=== PATIENT | male | born 1960 | race Caucasian/White ===

== ENCOUNTER 2016-11-28 11:08 | Inpatient (IN) | payer BC ==
[~2016-11-28] VITALS: Ht 180.3 cm; Wt 107.5 kg
[2016-11-28] VITALS (9 sets, daily range): BP systolic 162–196; BP diastolic 91–109; PULSE 80–98; RESP 20–22; TEMP 98.5; O2SAT 78–95
[~2016-11-28 11:08] MED LIST: ASPI81TA81
[2016-11-28] MEDS ORDERED: ONDANSETRON HCL 4 MG/2 ML VIAL IVP ONE (11:15)
[2016-11-28] MEDS ORDERED: SODIUM CHLORIDE 0.9% FLUSH 5 ML FLUSH IVF PRN (11:15)
[2016-11-28] MEDS ORDERED: MORPHINE SULFATE 4 MG/ML INJ IV PUSH ONE (11:15)
--- NOTE | 2016-11-28 11:29 | PD ---
HPI Chief Complaint: Fall/Left Knee Pain Time Seen by Provider: 11:19 Travel History International Travel<30 days: No Contact w/Intl Traveler<30days: No Traveled to known affect area: No History of Present Illness HPI 56-year-old male brought in EMS status post fall, with secondary left knee pain. 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 Patient now has pain, and deformity just above the left patella. Patient comes in splinted in on a backboard. Patient denies injury to the upper extremities, neck, or head. He has no thoracic pain or abdominal pain. The right leg is within normal limits. Patient denies left hip pain, and is able to move the left foot and toes without difficulty. He denies numbness or tingling. Patient is unable to extend the left leg at the knee. Patient is in significant pain complaining of 8/10 constant pain. Patient has no other significant medical problems. Patient last ate a yogurt smoothie at approximately 8 AM. Patient has no known drug allergies. 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) Social History Alcohol Use: Yes Tobacco Use: No Substance Use: No Allergies-Medications (Allergen,Severity, Reaction): Coded Allergies: No Known Allergies (Unverified , 11/28/16) Reported Meds & Prescriptions Reported Meds & Active Scripts Active Reported Aspir-81 (Aspirin) 81 Mg Tabdr Review of Systems Except as stated in HPI: all other systems reviewed are Neg General / Constitutional: No: Fever Eyes: No: Visual changes HENT: No: Headaches Cardiovascular: No: Chest Pain or Discomfort Respiratory: No: Shortness of Breath Gastrointestinal: No: Abdominal Pain Genitourinary: No: Dysuria Musculoskeletal: No: Pain Skin: No Rash Neurologic: No: Weakness Psychiatric: No: Depression Endocrine: No: Polydipsia Hematologic/Lymphatic: No: Easy Bruising Physical Exam Narrative GENERAL: Patient appears in moderate distress. SKIN: Warm and dry. Normal color. Normal turgor. HEAD: Atraumatic. Normocephalic. Nontender. EYES: Pupils equal and round. No scleral icterus. No injection or drainage. ENT: No nasal bleeding or discharge. Mucous membranes pink and moist. No dental injury. Pharynx is clear. NECK: Trachea midline. No JVD. No bony tenderness or step-off. Neck is supple without tenderness. CARDIOVASCULAR: Regular rate and rhythm. RESPIRATORY: No accessory muscle use. Clear to auscultation. Breath sounds equal bilaterally. GASTROINTESTINAL: Abdomen soft, non-tender, nondistended. Hepatic and splenic margins not palpable. MUSCULOSKELETAL: Extremities without clubbing, cyanosis, or edema. Patient has normal alignment of the left knee, without shortening. There is a presumed muscular deformity to the proximal patellar tendon. Exam limited secondary to patient's pain. Lower extremity Distal pulses and neurological exam are normal. NEUROLOGICAL: Awake and alert. No obvious cranial nerve deficits. Motor grossly within normal limits. Normal speech. PSYCHIATRIC: Appropriate mood and affect; insight and judgment normal. Data Data Last Documented VS Vital Signs Date Time Temp Pulse Resp B/P Pulse Ox O2 Delivery O2 Flow Rate FiO2 11/28/16 11:19 98.5 83 20 196/109 95 Room Air Orders Electrocardiogram (11/28/16 11:11) Complete Blood Count With Diff (11/28/16 11:11) Comprehensive Metabolic Panel (11/28/16 11:11) Prothrombin Time / Inr (Pt) (11/28/16 11:11) Act Partial Throm Time (Ptt) (11/28/16 11:11) Urinalysis - C+S If Indicated (11/28/16 11:11) Femur (Ap & Lat/2vws) (11/28/16 11:11) Iv Access Insert/Monitor (11/28/16 11:11) Oximetry (11/28/16 11:11) Ice/Cold Pack (11/28/16 11:11) Ecg Monitoring (11/28/16 11:11) Morphine Inj (Morphine Inj) (11/28/16 11:15) Ondansetron Inj (Zofran Inj) (11/28/16 11:15) Sodium Chloride 0.9% Flush (Ns Flush) (11/28/16 11:15) Knee, Ltd (1 Or 2vws) (11/28/16 11:11) Chest, Single Ap (11/28/16 11:11) Hydromorphone Pf Inj (Dilaudid Pf Inj) (11/28/16 12:15) Mri Thigh W/O Contrast (11/28/16 ) Labs Laboratory Tests Test 11/28/16 11/28/16 11:10 13:20 White Blood Count 7.1 TH/MM3 Red Blood Count 5.45 MIL/MM3 Hemoglobin 15.7 GM/DL Hematocrit 46.3 % Mean Corpuscular Volume 85.0 FL Mean Corpuscular Hemoglobin 28.9 PG Mean Corpuscular Hemoglobin 34.0 % Concent Red Cell Distribution Width 13.4 % Platelet Count 209 TH/MM3 Mean Platelet Volume 8.8 FL Neutrophils (%) (Auto) 59.4 % Lymphocytes (%) (Auto) 28.5 % Monocytes (%) (Auto) 8.5 % Eosinophils (%) (Auto) 2.8 % Basophils (%) (Auto) 0.8 % Neutrophils # (Auto) 4.2 TH/MM3 Lymphocytes # (Auto) 2.0 TH/MM3 Monocytes # (Auto) 0.6 TH/MM3 Eosinophils # (Auto) 0.2 TH/MM3 Basophils # (Auto) 0.1 TH/MM3 CBC Comment DIFF FINAL Differential Comment Prothrombin Time 10.3 SEC Prothromb Time International 0.9 RATIO Ratio Activated Partial SEC Thromboplast Time Sodium Level 140 MEQ/L Potassium Level 4.4 MEQ/L Chloride Level 107 MEQ/L Carbon Dioxide Level 28.5 MEQ/L Anion Gap 5 MEQ/L Blood Urea Nitrogen 14 MG/DL Creatinine 0.84 MG/DL Estimat Glomerular Filtration 94 ML/MIN Rate Random Glucose 119 MG/DL Calcium Level 8.6 MG/DL Total Bilirubin 0.6 MG/DL Aspartate Amino Transf 22 U/L (AST/SGOT) Alanine Aminotransferase 50 U/L (ALT/SGPT) Alkaline Phosphatase 56 U/L Total Protein 7.3 GM/DL Albumin 4.0 GM/DL Urine Color YELLOW Urine Turbidity CLEAR Urine pH 5.0 Urine Specific [place] 1.017 Urine Protein NEG mg/dL Urine Glucose (UA) NEG mg/dL Urine Ketones NEG mg/dL Urine Occult Blood NEG Urine Nitrite NEG Urine Bilirubin NEG Urine Urobilinogen LESS THAN 2.0 MG/DL Urine Leukocyte Esterase NEG Urine RBC LESS THAN 1 /hpf Urine WBC LESS THAN 1 /hpf Urine Mucus FEW /lpf Microscopic Urinalysis Comment CATH-CULT NOT IND MDM Medical Decision Making Medical Screen Exam Complete: Yes Emergency Medical Condition: Yes Differential Diagnosis Fall. Left knee contusion. Left knee fracture. Femur fracture. Patella tendon rupture. Narrative Course Patient is medically stable at time of exam. Labs ordered including EKG, chest x-ray, CBC and CMP. IV access is obtained patient is given 4 mg IV Zofran as well as 4 mg IV morphine. X-rays ordered of the left femur and knee. Patient is nothing by mouth. X-ray are read as negative for fracture per radiologist. Call was placed to Dr. Posey, who recommends MRI to evaluate for tendon rupture. MRI is ordered. Patient is given hydromorphone 1 mg IV for pain. MRI shows rupture of the quad patellar tendon. Patient is discussed with Dr. Posey who states he will see the patient in the ED for OR treatment. Diagnosis Primary Impression: Rupture of left patellar tendon Qualified Code: S86.812A - Rupture of left patellar tendon, initial encounter Condition: Stable Yordy Valles Nov 28, 2016 11:29
[2016-11-28 11:47] LABS: AUTOMATED NEUTROPHIL # 4.2 TH/MM3 (1.8-7.7); BASOPHIL # 0.1 TH/MM3 (0-0.2); BASOPHIL % 0.8 % (0.0-2.0); EOSINOPHIL # 0.2 TH/MM3 (0-0.4); EOSINOPHIL % 2.8 % (0.0-4.0); HEMATOCRIT 46.3 % (39.0-51.0); HEMO FLAGS DIFF FINAL; LYMPH % 28.5 % (9.0-44.0); MEAN CORPUSCULAR HEMOGLOBIN 28.9 PG (27.0-34.0); MONO % 8.5 % (0.0-8.0); NEUT % 59.4 % (16.0-70.0); PLATELET COUNT 209 TH/MM3 (150-450); RED BLOOD COUNT 5.45 MIL/MM3 (4.50-5.90); RED CELL DISTRIBUTION WIDTH 13.4 % (11.6-17.2); WHITE BLOOD COUNT 7.1 TH/MM3 (4.0-11.0)
[2016-11-28 11:52] LABS: INTERNATIONAL NORMALIZED RATIO 0.9 RATIO; PROTHROMBIN TIME - PATIENT 10.3 SEC (9.8-11.6)
[2016-11-28 11:56] LABS: ALKALINE PHOSPHATASE 56 U/L (45-117); ALT (GPT) 50 U/L (12-78); ANION GAP 5 MEQ/L (5-15); AST (GOT) 22 U/L (15-37); BICARBONATE 28.5 MEQ/L (21.0-32.0); BLOOD UREA NITROGEN 14 MG/DL (7-18); CHLORIDE 107 MEQ/L (98-107); GLOMERULAR FILTRATION RATE 94 ML/MIN (>89); POTASSIUM 4.4 MEQ/L (3.5-5.1); SODIUM (NA) 140 MEQ/L (136-145); TOTAL BILIRUBIN ADULT 0.6 MG/DL (0.2-1.0)
[2016-11-28] MEDS ORDERED: LACTATED RINGER'S 1000 ML INJ 1,000 ML IV ONE (12:00)
[2016-11-28] MEDS ORDERED: NEOSTIGMINE 3 MG/3 ML SYR IV ONE (12:00)
[2016-11-28] MEDS ORDERED: PHENYLEPH/NS 1000 MCG/10 ML SYR IV ONE (12:00)
[2016-11-28] MEDS ORDERED: ONDANSETRON HCL 4 MG/2 ML VIAL IV PUSH ONE (12:00)
[2016-11-28] MEDS ORDERED: PROPOFOL 200 MG/20 ML AMP IV ONE (12:00)
[2016-11-28] MEDS ORDERED: HYDROmorphone HCL PF 1 MG/ML VIAL IV PUSH ONE (12:15)
--- NOTE | 2016-11-28 12:24 | RADRPT ---
EXAM DATE/TIME: 11/28/2016 12:07 [facility] COMPARISON: No previous studies available for comparison. INDICATIONS : Shortness of breath post fall. MEDICAL HISTORY : None. SURGICAL HISTORY : None. ENCOUNTER: Initial ACUITY: 1 day PAIN SCORE: 0/10 LOCATION: Bilateral chest FINDINGS: A single view of the chest demonstrates the lungs to be symmetrically aerated without evidence of mas s, infiltrate or effusion. The cardiomediastinal contours are unremarkable degenerative ;changes are present about both shoulders. CONCLUSION: No acute disease. Rico Beth MD FACR on November 28, 2016 at 12:17 Board Certified Radiologist. This report was verified electronically.
--- NOTE | 2016-11-28 12:33 | RADRPT ---
EXAM DATE/TIME: 11/28/2016 11:56 [facility] COMPARISON: No previous studies available for comparison. INDICATIONS : Left knee pain, fall. MEDICAL HISTORY : None. SURGICAL HISTORY : None. ENCOUNTER: Initial ACUITY: 1 day PAIN SCORE: 10/10 LOCATION: Left anterior knee FINDINGS: Two view examination of the left knee demonstrates no evidence of fracture or dislocation. Bony mine ralization is normal. The suprapatellar soft tissues have a normal configuration. Small spur forming off the superior patella. CONCLUSION: No acute bony injury. Napoleon Garcia MD on November 28, 2016 at 12:31 Board Certified Radiologist. This report was verified electronically.
--- NOTE | 2016-11-28 12:34 | RADRPT ---
EXAM DATE/TIME: 11/28/2016 12:09 [facility] COMPARISON: No previous studies available for comparison. INDICATIONS : Left leg pain, fall. MEDICAL HISTORY : None. SURGICAL HISTORY : None. ENCOUNTER: Initial ACUITY: 1 day PAIN SCORE: 10/10 LOCATION: Left knee FINDINGS: Two view examination of the left femur demonstrates no evidence of fracture or dislocation. Bony min eralization is normal. The soft tissue structures are intact. CONCLUSION: Unremarkable examination of the left femur. Napoleon Garcia MD on November 28, 2016 at 12:32 Board Certified Radiologist. This report was verified electronically.
[2016-11-28 13:42] LABS: BLOOD, URINE NEG (NEG); GLUCOSE,URINE NEG (NEG); KETONE, URINE NEG (NEG); MUCUS URINE FEW /lpf (OCC); NITRITE,URINE NEG (NEG); URINE COLOR YELLOW (YELLW/STRAW)
[2016-11-28 13:43] LABS: COMMENT (UR) CATH-CULT NOT IND; CULTURE IF INDICATED CATH CULTURE NOT IND
--- NOTE | 2016-11-28 16:31 | RADRPT ---
EXAM DATE/TIME: 11/28/2016 14:33 [facility] COMPARISON: No previous studies available for comparison. INDICATIONS : Tendon rupture. Pt fell now has pain top of left thigh. MEDICAL HISTORY : None. SURGICAL HISTORY : Femur/knee ENCOUNTER: Initial ACUITY: 1 day PAIN SCORE: 6/10 LOCATION: Left thigh TECHNIQUE: Multiplanar multisequence MRI examination of the thigh was performed without contrast. FINDINGS: The study was protocoled as a thigh MRI. The quadriceps tendon is incompletely imaged. BONE/CARTILAGE: Bone marrow signal is homogeneous. Articular cartilage signal is within normal limits. MUSCLES/TENDONS: There is a high grade partial tear of the quadriceps tendon. The rectus femoris tendon is torn and re tracted to at least 2.7 cm above the patella. There is a tear involving the insertion of the vastus l ateralis tendon with a similar fluid-filled defect. The vastus intermedius tendon is still grossly in tact. There is some edema in the vastus lateralis muscle in the vastus intermedius muscle. A knee MRI would be much more sensitive test to give a better definition to the amount of and tendons involve. MISCELLANEOUS: Neurovascular structures are within normal limits. CONCLUSION: There is a high grade partial tear of the quadriceps tendon. The rectus femoris tendon is torn and re tracted to at least 2.7 cm above the patella. There is a tear involving the insertion of the vastus l ateralis tendon with a similar fluid-filled defect. The vastus intermedius tendon is still grossly in tact. There is some edema in the vastus lateralis muscle in the vastus intermedius muscle. A knee MRI would be much more sensitive test to give a better definition to the amount of and tendons involve. Eric Fallon MD on November 28, 2016 at 16:23 Board Certified Radiologist. This report was verified electronically.
[2016-11-28] MEDS ORDERED: ceFAZolin 2 GM PREMIX 50 ML IV SCH (17:45)
[2016-11-28] MEDS ORDERED: ceFAZolin 2 GM PREMIX 50 ML ONE (18:10)
[2016-11-28] MEDS: HYDROmorphone HCL PF 1 MG/ML VIAL IV PUSH PRN ×2 (20:37→21:13)
[2016-11-28] MEDS ORDERED: GENTAMICIN SULFATE 80 MG/2 ML VIAL ONE (22:03)
[2016-11-28] MEDS ORDERED: ACETAMINOPHEN 1000 MG/100 ML VIAL IV ONE (22:58)
[2016-11-28] MEDS: DEXT 5%-NACL 0.45% 1000 ML INJ 1,000 ML IV SCH (23:58)
[2016-11-29] VITALS (7 sets, daily range): BP systolic 125–142; BP diastolic 70–85; PULSE 88–92; RESP 16–18; TEMP 96.7–98.2; O2SAT 93–98
[2016-11-29] MEDS ORDERED: ONDANSETRON HCL 4 MG/2 ML VIAL IVP PRN
[2016-11-29] MEDS ORDERED: MISCELLANEOUS PHARMACY INFORMATION XX ONE
[2016-11-29] MEDS ORDERED: SODIUM CHLORIDE 0.9% FLUSH 5 ML FLUSH IVF PRN
[2016-11-29] MEDS ORDERED: NALOXONE HCL 0.4 MG/ML AMP IV PRN
[2016-11-29] MEDS ORDERED: diphenhydrAMINE HCL 25 MG CAP PO PRN
[2016-11-29] MEDS ORDERED: oxyCODONE/ACETAMINOPHEN 5 MG/325 MG TAB PO PRN
[2016-11-29] MEDS ORDERED: MISCELLANEOUS NURSING INFORMATION XX PRN
[2016-11-29] MEDS ORDERED: MORPHINE SULFATE 30 MG/30 ML PCA IV SCH
[2016-11-29] MEDS ORDERED: Post-op Orders (for Pharmacy) MISC XX ONE
--- NOTE | 2016-11-29 00:07 | PD.OP ---
Operative Report Preoperative Diagnosis: (1) Rupture of left quadriceps tendon Postoperative Diagnosis: (1) Rupture of left quadriceps tendon Procedure: Left Quadriceps Tendon Repair Anesthesia: General Surgeon: Phil Posey MD Plumbing Instructor(s): Jean RAMOS Operation and Findings: see dictation Phil Posey MD Nov 29, 2016 00:07
[2016-11-29] MEDS ORDERED: *MEPERIDINE 25 MG INJ VIAL PERIprocedural Use ONLY ONE (00:16)
[2016-11-29] MEDS ORDERED: *LABETALOL HCL 100 MG/20 ML VIAL PERIprocedural Use ONLY ONE (00:16)
[2016-11-29] MEDS ORDERED: MIDAZOLAM HCL 2 MG/2 ML VIAL ONE (00:18)
[2016-11-29] MEDS ORDERED: fentaNYL CITRATE 250 MCG/5 ML AMP ONE (00:18)
[2016-11-29] MEDS ORDERED: FAMOTIDINE 20 MG/2 ML VIAL ONE (00:19)
[2016-11-29] MEDS ORDERED: *ENALAPRILAT 1.25 MG/ML VIAL PERIprocedural Use ONLY ONE (00:47)
[2016-11-29] MEDS ORDERED: *morphine SULFATE 8 MG/ML PERIprocedure ONLY ONE (00:56)
--- NOTE | 2016-11-29 05:50 | MH ---
cc: PEDRO DUMONT M.D. DATE OF ADMISSION: 11/28/2016 ADMISSION DIAGNOSIS Left knee quadriceps tendon complete rupture. 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 X-rays showed no obvious fracture. He was brought to [facility] where x-rays showed no obvious fracture. He was unable to extend his knee. The physician material assistant telephoned me and recommendation was MRI scan and that was performed which did confirm a complete quadriceps rupture. The patient is now being admitted for this severe problem. His pain is reasonably controlled at this point. He is indicated for surgical intervention for this problem. After surgery, then he will need to be taught how to safely ambulate, either with a walker or crutches and his estimated time of admission is three days. PAST MEDICAL HISTORY Significant for borderline hypertension. PAST SURGICAL HISTORY 1. 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 2. He has a history of left elbow dislocation which required treatment. SOCIAL HISTORY He uses occasional alcohol. Denies tobacco or substance use. MEDICATIONS He is on no regular medication and except for daily aspirin. ALLERGIES No known drug allergies. PHYSICAL EXAMINATION GENERAL: He is alert, oriented, appropriate. HEENT: Head is atraumatic, normocephalic. External muscles intact. Mucous membranes pink and moist. Neck: Supple. No masses. LUNGS: Clear to auscultation bilaterally. HEART: Regular rate and rhythm, without murmur. ABDOMEN: Soft. Non-tender. Positive bowel sounds. EXTREMITY EXAMINATION: Significant for left knee palpable defect above the superior pole of the patella consistent with a complete quadriceps rupture. He is unable to extend his knee. He has tenderness at this location, small effusion. No ligamentous instability. Calves are soft. Distal pulses are 2+. Distal motor and sensory neurologic examination intact. IMAGING STUDIES Images of his femur, his knee and a thigh MRI is reviewed by the undersigned which is all consistent with complete rupture of the quadriceps tendon at the superior pole of the patella attachment site. ASSESSMENT Left knee quadriceps rupture. MEDICAL DECISION MAKING His condition was discussed. The options of treatment were discussed. The recommendation is admission and surgical intervention. If we can proceed with surgery at night, then we would like to do that as he not eaten anything since breakfast. We talked about surgical technique, anterior approach to the knee, trimming away the torn tissue and then taking healthy tissue and repairing it directly to the bone either with suture anchors or drill holes to the length of the patella. The risk of infection, nerve damage, blood vessel damage, anesthetic complications, medical complications and unforeseen possible complications were discussed including discussion for the need for compliance postoperatively and probable small loss of motion of the knee. The risks and benefits were thoroughly discussed and a detailed informed consent was obtained. Additionally, the plan of treatment is to have a nurse practitioner to assist me as the skill set of nurse practitioner who specializes in orthopedic surgeon as needed for the OR and postoperatively he will assist with management and this is discussed with the patient, that his care is medically necessary. All questions answered. MD PAULINA Fernandes/MERARY /5:38 PM /5:37 AM
[2016-11-29] MEDS: PCA - TOTAL MG MORPHINE DELIVERED PER SHIFT SCH ×4 (06:00→19:04)
--- NOTE | 2016-11-29 08:04 | PD.ORT.PN ---
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 Lying in bed. Objective Vitals Vital Signs Date Time Temp Pulse Resp B/P Pulse Ox O2 Delivery O2 Flow Rate FiO2 11/29/16 06:00 18 11/29/16 02:49 14 11/29/16 02:05 98.2 88 17 138/81 96 11/29/16 01:45 97.9 84 18 146/90 94 Nasal Cannula 3 11/29/16 01:30 83 13 144/89 94 Nasal Cannula 3 11/29/16 01:15 80 14 142/87 94 Nasal Cannula 3 11/29/16 01:00 80 14 143/82 95 Nasal Cannula 3 11/29/16 00:45 81 16 170/102 95 Nasal Cannula 3 11/29/16 00:30 76 15 157/96 94 Nasal Cannula 3 11/29/16 00:15 86 20 187/103 97 Nasal Cannula 3 11/29/16 00:10 98.0 91 21 195/104 95 Nasal Cannula 3 11/28/16 21:14 93 20 162/91 95 Nasal Cannula 11/28/16 21:10 16 11/28/16 21:03 93 20 163/93 11/28/16 20:37 98 20 167/94 94 11/28/16 19:55 83 20 183/105 11/28/16 19:45 84 20 194/99 11/28/16 19:12 88 179/96 94 Room Air 11/28/16 17:57 93 20 181/94 95 Room Air 11/28/16 11:19 98.5 83 20 196/109 95 Room Air 11/28/16 11:19 77 20 95 Room Air 11/28/16 11:10 98.5 82 22 196/109 95 I/O 11/28/16 11/28/16 11/28/16 11/29/16 11/29/16 11/29/16 07:00 15:00 23:00 07:00 15:00 23:00 Intake Total 1200 ml Output Total 50 ml Balance 1150 ml Intake IV Total 100 ml Other 1100 ml Output Urine Total 0 ml Estimated Blood Loss 50 ml Other 0 ml # Voids 0 Result Diagram: 11/28/16 1110 11/28/16 1110 Other Results Laboratory Tests Test 11/28/16 11:10 Prothrombin Time 10.3 SEC (9.8-11.6) Prothromb Time International 0.9 RATIO Ratio Imaging Last 24 hours Impressions Knee X-Ray 11/28/16 1111 Signed Impressions: Service Date/Time: Monday, November 28, 2016 11:56 - CONCLUSION: No acute bony injury. Napoleon Garcia MD Femur X-Ray 11/28/16 1111 Signed Impressions: Service Date/Time: Monday, November 28, 2016 12:09 - CONCLUSION: Unremarkable examination of the left femur. Napoleon Garcia MD Chest X-Ray 11/28/16 1111 Signed Impressions: Service Date/Time: Monday, November 28, 2016 12:07 - CONCLUSION: No acute disease. Rico Beth MD FACR Procedures Left Quadriceps Tendon Repair Objective Remarks Left knee beni wrap in place C/D/I knee immobilizer in place ice pack in place +sensation 2+ dorsalis pedis pulses good movement of foot Assessment & Plan Ortho Post Op Day #: 1 Problem List: (1) Rupture of left quadriceps tendon Plan: Pain management - TRUCK DRIVING and Percocet Physical therapy - weight bearing as tolerated, No ROM, wear knee immobilizer at all times Continue standard meds D/C planning - anticipating home Jean Shipley Nov 29, 2016 08:04
[2016-11-29] MEDS: CHLORHEXIDINE GLUCONATE 4% SOLN 120 ML BTL TOPICAL SCH ×2 (08:38→18:58)
[2016-11-29] MEDS: SODIUM CHLORIDE 0.9% FLUSH 5 ML FLUSH IVF SCH ×2 (09:00→21:00)
[2016-11-29] MEDS: MAGNESIUM HYDROXIDE SUSP 30 ML CUP PO PRN (10:14)
[2016-11-29] MEDS: DOCUSATE SODIUM 50 MG/SENNA 8.6 MG TAB PO SCH ×2 (10:15→21:00)
[2016-11-29] MEDS: MULTIVITAMINS/MINERALS THERAPEUTIC TAB PO SCH (10:15)
[2016-11-29] MEDS: ceFAZolin 2 GM PREMIX 50 ML IV SCH ×3 (10:16→16:58)
[2016-11-29] MEDS: DEXT 5%-NACL 0.45% 1000 ML INJ 1,000 ML IV SCH ×2 (10:17→19:58)
--- NOTE | 2016-11-29 13:30 | EKG ---
Date Performed: 11/28/2016 Time Performed: 12:26:55 PTAGE: 56 years EKG: Sinus rhythm NORMAL ECG NO PREVIOUS TRACING DOCTOR: Laury Walker Interpretating Date/Time 11/29/2016 13:29:28
[2016-11-29] MEDS: oxyCODONE/ACETAMINOPHEN 5 MG/325 MG TAB PO PRN ×2 (14:05→21:03)
[2016-11-30 00:33] VITALS: BP 156/78; PULSE 74; RESP 17; TEMP 96.4; O2SAT 96
[2016-11-30 04:15] VITALS: BP 155/98; PULSE 82; RESP 18; TEMP 99.4; O2SAT 96
[2016-11-30] MEDS: oxyCODONE/ACETAMINOPHEN 5 MG/325 MG TAB PO PRN ×3 (05:02→20:32)
[2016-11-30] MEDS: DEXT 5%-NACL 0.45% 1000 ML INJ 1,000 ML IV SCH ×3 (05:03→20:20)
[2016-11-30 08:00] VITALS: BP 146/93; PULSE 81; RESP 18; TEMP 97; O2SAT 96
[2016-11-30] MEDS: MULTIVITAMINS/MINERALS THERAPEUTIC TAB PO SCH (08:15)
[2016-11-30] MEDS: SODIUM CHLORIDE 0.9% FLUSH 5 ML FLUSH IVF SCH ×2 (08:15→20:20)
[2016-11-30] MEDS: MAGNESIUM HYDROXIDE SUSP 30 ML CUP PO PRN (08:15)
[2016-11-30] MEDS: DOCUSATE SODIUM 50 MG/SENNA 8.6 MG TAB PO SCH ×2 (08:15→20:15)
[2016-11-30] MEDS: PCA - TOTAL MG MORPHINE DELIVERED PER SHIFT SCH ×3 (08:16→20:22)
[2016-11-30 12:00] VITALS: BP 153/97; PULSE 99; RESP 18; TEMP 96.6; O2SAT 95
[2016-11-30 16:00] VITALS: BP_SYST 152; BP_DIAS 86; BP_DIAS 96; PULSE 86; RESP 18; TEMP 98.5; O2SAT 98
[2016-11-30 20:00] VITALS: BP 168/97; PULSE 105; RESP 18; TEMP 97.4; O2SAT 93
--- NOTE | 2016-11-30 22:35 | PD.ORT.PN ---
Subjective Subjective Remarks Spoke with RN and states that patient is ambulating around the room with no distress. Objective Vitals Vital Signs Date Time Temp Pulse Resp B/P Pulse Ox O2 Delivery O2 Flow Rate FiO2 11/30/16 21:32 18 11/30/16 20:00 97.4 105 18 168/97 93 11/30/16 16:00 98.5 86 18 152/86 98 11/30/16 12:00 96.6 99 18 153/97 95 11/30/16 08:00 97.0 81 18 146/93 96 11/30/16 04:15 99.4 82 18 155/98 96 11/30/16 00:33 96.4 74 17 156/78 96 I/O 11/29/16 11/29/16 11/29/16 11/30/16 11/30/16 11/30/16 07:00 15:00 23:00 07:00 15:00 23:00 Intake Total 2265 ml 1462 ml 480 ml 480 ml 1260 ml Output Total 850 ml 1500 ml 400 ml 500 ml Balance 1415 ml -38 ml 80 ml -20 ml 1260 ml Intake Oral 240 ml 960 ml 480 ml 480 ml 1260 ml IV Total 925 ml 502 ml Other 1100 ml Output Urine Total 800 ml 1500 ml 400 ml 500 ml Estimated Blood Loss 50 ml Other 0 ml # Voids 1 3 # Bowel Movements 0 0 0 Result Diagram: 11/28/16 1110 11/28/16 1110 Imaging Last 24 hours Impressions Knee X-Ray 11/28/16 1111 Signed Impressions: Service Date/Time: Monday, November 28, 2016 11:56 - CONCLUSION: No acute bony injury. Napoleon Garcia MD Femur X-Ray 11/28/16 1111 Signed Impressions: Service Date/Time: Monday, November 28, 2016 12:09 - CONCLUSION: Unremarkable examination of the left femur. Napoleon Garcia MD Chest X-Ray 11/28/16 1111 Signed Impressions: Service Date/Time: Monday, November 28, 2016 12:07 - CONCLUSION: No acute disease. Rico eBth MD FACR Procedures Left Quadriceps Tendon Repair Assessment & Plan Ortho Post Op Day #: 2 Problem List: (1) Rupture of left quadriceps tendon Plan: Pain management - Percocet Physical therapy - weight bearing as tolerated, No ROM, wear knee immobilizer at all times Continue standard meds D/C planning - anticipating home tomorrow Jean Shipley Nov 30, 2016 22:35
[2016-11-30] MEDS ORDERED: OXYC1TAB63 PO (22:42)
[2016-11-30] MEDS ORDERED: ROLLER WALKER1 MI1 (22:42)
[2016-12-01] VITALS: BP 174/89; PULSE 96; RESP 17; TEMP 99.8; O2SAT 94
[2016-12-01 04:00] VITALS: BP 157/93; PULSE 95; RESP 16; TEMP 99.3; O2SAT 94
--- NOTE | 2016-12-01 07:56 | PD.ORT.PN ---
Subjective Subjective Remarks Pain intense, but tolerable He believes that he is ready to go home Objective Vitals Vital Signs Date Time Temp Pulse Resp B/P Pulse Ox O2 Delivery O2 Flow Rate FiO2 12/01/16 04:00 99.3 95 16 157/93 94 12/01/16 00:00 99.8 96 17 174/89 94 11/30/16 21:32 18 11/30/16 20:00 97.4 105 18 168/97 93 11/30/16 16:00 98.5 86 18 152/86 98 11/30/16 12:00 96.6 99 18 153/97 95 11/30/16 08:00 97.0 81 18 146/93 96 I/O 11/30/16 11/30/16 11/30/16 12/01/16 12/01/16 12/01/16 07:00 15:00 23:00 07:00 15:00 23:00 Intake Total 480 ml 1260 ml 240 ml 240 ml Output Total 500 ml 300 ml Balance -20 ml 1260 ml 240 ml -60 ml Intake Oral 480 ml 1260 ml 240 ml 240 ml Output Urine Total 500 ml 300 ml # Voids 3 1 # Bowel Movements 0 0 0 0 Result Diagram: 11/28/16 1110 11/28/16 1110 Imaging Last 24 hours Impressions Knee X-Ray 11/28/16 1111 Signed Impressions: Service Date/Time: Monday, November 28, 2016 11:56 - CONCLUSION: No acute bony injury. Napoleon Garcia MD Femur X-Ray 11/28/16 1111 Signed Impressions: Service Date/Time: Monday, November 28, 2016 12:09 - CONCLUSION: Unremarkable examination of the left femur. Napoleon Garcia MD Chest X-Ray 11/28/16 1111 Signed Impressions: Service Date/Time: Monday, November 28, 2016 12:07 - CONCLUSION: No acute disease. Rico Beth MD FACR Procedures Left Quadriceps Tendon Repair Objective Remarks Left lower extremity beni wraps in place calves soft negative ирина's NVI Assessment & Plan Problem List: (1) Rupture of left quadriceps tendon Plan: Pain management - Percocet script Physical therapy - weight bearing as tolerated, No ROM, wear knee immobilizer at all times Continue standard meds D/C home today F/U in 8 days Phil Posey MD Dec 01, 2016 07:56
[2016-12-01 08:00] VITALS: BP 145/95; PULSE 100; RESP 18; TEMP 97.9; O2SAT 92
[2016-12-01] MEDS: DOCUSATE SODIUM 50 MG/SENNA 8.6 MG TAB PO SCH (08:35)
[2016-12-01] MEDS: MULTIVITAMINS/MINERALS THERAPEUTIC TAB PO SCH (08:35)
[2016-12-01] MEDS: SODIUM CHLORIDE 0.9% FLUSH 5 ML FLUSH IVF SCH (08:36)
[2016-12-01] MEDS: oxyCODONE/ACETAMINOPHEN 5 MG/325 MG TAB PO PRN (08:36)
[2016-12-01 09:36] VITALS: RESP 18
--- NOTE | 2016-12-08 16:01 | MP ---
cc: PEDRO DUMONT M.D. DATE OF SURGERY 11/28/2016 PREOPERATIVE DIAGNOSIS Left knee quadriceps tendon complete rupture. POSTOPERATIVE DIAGNOSIS Left knee quadriceps tendon complete rupture. PROCEDURE Primary repair of left quadriceps tendon. SURGEON Pedro Dumont MD MAINTENANCE SPECIALIST SURGEON RACHEL Justice DATE OF 1960 BLOOD LOSS 150 cc DRAINS None SPECIMEN None COMPLICATIONS None known INDICATIONS Mr. Camacho is a 56-year-old male who was attempting to светлана a shoplifter today when he fell sustaining an injury. included in the discussion was the risk of infection, nerve damage, blood vessel damage, anesthetic complications, medical complications, failure of the surgery and need for additional surgery, the unforeseen possible complications. All his questions were answered. He wished to press on with surgical intervention. It should be noted, the veterinarian assistant is an advanced registered nurse practitioner's who sub-specializes in orthopedic surgery. His skill set was medically necessary for the performance of the operation. He retracted vital structures, assisted with reduction of the quad tendon his assistance was medically necessary throughout the entire operation. PROCEDURE The patient was brought to the operating room, placed under general anesthetic. The left lower extremity was draped and prepped in usual sterile fashion. IV antibiotics given. Time-out was completed. Anterior approach to the knee. Meticulous hemostasis as we went along. This was a vertically oriented incision. The layers of the subcutaneous fat and then the deep fascial layer split and then this exposed the complete quad tendon rupture. We noted a large hematoma in the knee and this was thoroughly irrigated out. A significant portion of the synovial layer was maintained and we actually repaired this. We assessed the repair and the mobility of the quad tendon and we trimmed away some dysvascular end and we trimmed it to bleeding bone and made a bony trough and made three vertically oriented longitudinal drill holes in the patella and we used #2 FiberWire and did a Whipstitch for about four or five stitches up and four or five stitches back and then pulled the sutures through one side of the quad tendon and then the sutures through the other side of the quad tendon and then we help this reduced while we tied this down and then we used #2 FiberWire to repair the medial and lateral retinacular tears and then we tested the repair in gravity flexion brought the knee to 105 or 110 degrees and the repair looked very solid. Again, we irrigated out copious amounts irrigation and then proceeded to close in layers with absorbable sutures and sagrario were used on the skin. Xeroform applied. Sterile dressing applied, Sof-Rol applied, Mario wrap applied. Knee immobilizer applied. The patient was awoken and returned to the recovery room in stable condition. MD PAULINA Fernandes/RENATE /12:26 AM /3:58 PM
--- NOTE | 2017-01-11 09:08 | MD ---
cc: PEDRO DUMONT M.D. ADMISSION DATE: 11/28/2016 DISCHARGE DATE: 12/01/2016 ADMISSION DIAGNOSIS Left knee quadriceps tendon complete rupture. PROCEDURE Primary repair of left quadriceps tendon. 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 He was brought to the [place] emergency department to be further Imaging studies results determined that he had a left knee quadriceps tendon complete rupture which is indicated for surgical intervention. Risk and benefits were discussed and the patient wished to press on with surgical intervention. Surgical consent was signed and underwent surgery without complication. He was maintained on 24 hours IV antibiotics. Medical consultation was obtained, physical therapy consultation was obtained. He was transitioned from IV to p.o. pain medication, did well during hospitalization, did not have complications. On postoperative ___ he was discharged. As vital signs remained stable he was discharged home for continuation of rehabilitation. He was to continue on standard medication as well as prescription for pain management. Continue on standard regular diet with follow up scheduled in the office in 2 weeks. Thank you Dictated by RACHEL Justice MD PAULINA Fernandes/ERIC /5:15 PM /8:05 AM
== END 2016-12-01 11:56 | disposition home or self-care (01) | DRG 502 ==
LOC: NEPC 11:08 → NEDA 17:13 → NEDH 21:22 → N06B 11-29 02:05
PROVIDERS: ADMIT Orthopaedic Surgery Sports Medicine; ATTEND Orthopaedic Surgery Sports Medicine
PROC: 0LMR0ZZ Reattachment of Left Knee Tendon, Open Approach (ICD-10-PCS; principal; 2016-11-28 22:38)
DX: S76.112A Strain of left quadriceps muscle, fascia and tendon, initial encounter (principal); R03.0 Elevated blood-pressure reading, without diagnosis of hypertension; W01.0XXA Fall on same level from slipping, tripping and stumbling without subsequent striking against object, initial encounter; Y93.02 Activity, running; Y92.89 Other specified places as the place of occurrence of the external cause; Y99.0 Civilian activity done for income or pay
CPT/HCPCS: 71010; 73552; 73560; 73718; 80053; 81001; 85025; 85610; 85730; 93005; 94150; 96374; 96375; J0131; J0690; J1170; J1580; J2175; J2250; J2270; J2370; J2405; J2710; J3010; J7120; L1830

== ENCOUNTER 2016-12-16 13:52 | Inpatient (IN) | payer BC ==
[2016-12-16] VITALS (9 sets, daily range): BP systolic 86–157; BP diastolic 60–92; PULSE 109–136; RESP 16–24; TEMP 99.1–99.7; O2SAT 92–97
[~2016-12-16] VITALS: Ht 170.2 cm; Wt 101.6 kg
[~2016-12-16 13:52] MED LIST changes: +OXYC1TAB63 PO; +ROLLER WALKER1 MI1
--- NOTE | 2016-12-16 14:43 | PD ---
HPI Chief Complaint: Respiratory Symptoms Time Seen by Provider: 14:25 Travel History International Travel<30 days: No Contact w/Intl Traveler<30days: No Traveled to known affect area: No History of Present Illness HPI This patient complains of pain in his right side. Located in his right lower chest. It's a sharp stabbing pain clearly worse with inspiration. The deeper the breath the worse the pain is. He had left quadriceps tendon repair surgery 3 weeks ago. Getting around with a walker. No productive cough. Temp of 99.7. No injury. No history of cardiac or pulmonary disease or blood clot. Severity is moderate. Duration 2 days. No alleviating factors PFSH Past Medical History Hx Anticoagulant Therapy: Yes (81MG ASA) Asthma: No Autoimmune Disease: No Heart Rhythm Problems: No Cancer: No Cardiovascular Problems: Yes High Cholesterol: No Chest Pain: No Congestive Heart Failure: No COPD: No Diabetes: No Diminished Hearing: No Endocrine: No Genitourinary: No Hypertension: Yes Immune Disorder: No Musculoskeletal: No Neurologic: No Psychiatric: No Reproductive: No Respiratory: No Sleep Apnea: No Thyroid Disease: No Influenza Vaccination: No Past Surgical History Abdominal Surgery: No Cardiac Surgery: No Ear Surgery: No Endocrine Surgery: No Eye Surgery: No Genitourinary Surgery: No Gynecologic Surgery: No Oral Surgery: No Thoracic Surgery: No Other Surgery: Yes (tumor removed from right knee as a child) Social History Alcohol Use: Yes (5 TIMES A WEEK SEVERAL BEERS) Tobacco Use: No (NEVER) Substance Use: No Allergies-Medications (Allergen,Severity, Reaction): Coded Allergies: No Known Allergies (Unverified , 11/28/16) Reported Meds & Prescriptions Reported Meds & Active Scripts Active Roller Walker (Misc. Devices) 1 Mis Mis 1 Ea .ROUTE NOW Oxycodone-Acetaminophen 5-325 mg Tab 1 Tab PO Q4H PRN Reported Aspir-81 (Aspirin) 81 Mg Tabdr Review of Systems General / Constitutional: No: Fever Eyes: No: Visual changes HENT: No: Headaches Cardiovascular: Positive: Chest Pain or Discomfort Respiratory: Positive: Shortness of Breath Gastrointestinal: No: Abdominal Pain Genitourinary: No: Dysuria Musculoskeletal: No: Pain Skin: No Rash Neurologic: No: Weakness Psychiatric: No: Depression Endocrine: No: Polydipsia Hematologic/Lymphatic: No: Easy Bruising Physical Exam Narrative GENERAL: Well-nourished, well-developed patient with pleuritic chest pain. SKIN: Warm and dry. HEAD: Atraumatic. Normocephalic. EYES: Pupils equal and round. No scleral icterus. No injection or drainage. ENT: No nasal bleeding or discharge. Mucous membranes pink and moist. NECK: Trachea midline. No JVD. CARDIOVASCULAR: Regular rate and rhythm. No murmur appreciated. RESPIRATORY: No accessory muscle use. Clear to auscultation. Breath sounds equal bilaterally. GASTROINTESTINAL: Abdomen soft, non-tender, nondistended. Hepatic and splenic margins not palpable. MUSCULOSKELETAL: No obvious deformities. No clubbing. No cyanosis. No edema. NEUROLOGICAL: Awake and alert. No obvious cranial nerve deficits. Motor grossly within normal limits. Normal speech. PSYCHIATRIC: Appropriate mood and affect; insight and judgment normal. Data Data Last Documented VS Vital Signs Date Time Temp Pulse Resp B/P Pulse Ox O2 Delivery O2 Flow Rate FiO2 12/16/16 16:49 112 20 86/60 94 Nasal Cannula 2 12/16/16 14:18 99.7 Orders Iv Access Insert/Monitor (12/16/16 14:33) Chest, Single Ap (12/16/16 ) Complete Blood Count With Diff (12/16/16 14:33) Basic Metabolic Panel (Bmp) (12/16/16 14:33) Prothrombin Time / Inr (Pt) (12/16/16 14:33) Act Partial Throm Time (Ptt) (12/16/16 14:33) D-Dimer (12/16/16 14:33) Ct Pulmonary Angiogram (12/16/16 ) Iohexol 350 Inj (Omnipaque 350 Inj) (12/16/16 16:43) Admit Order (Ed Use Only) (12/16/16 17:00) Labs Laboratory Tests Test 12/16/16 14:49 White Blood Count 15.9 TH/MM3 Red Blood Count 5.24 MIL/MM3 Hemoglobin 14.4 GM/DL Hematocrit 44.1 % Mean Corpuscular Volume 84.2 FL Mean Corpuscular Hemoglobin 27.6 PG Mean Corpuscular Hemoglobin 32.8 % Concent Red Cell Distribution Width 12.6 % Platelet Count 311 TH/MM3 Mean Platelet Volume 8.2 FL Neutrophils (%) (Auto) 86.0 % Lymphocytes (%) (Auto) 6.6 % Monocytes (%) (Auto) 6.6 % Eosinophils (%) (Auto) 0.3 % Basophils (%) (Auto) 0.5 % Neutrophils # (Auto) 13.6 TH/MM3 Lymphocytes # (Auto) 1.1 TH/MM3 Monocytes # (Auto) 1.1 TH/MM3 Eosinophils # (Auto) 0.0 TH/MM3 Basophils # (Auto) 0.1 TH/MM3 CBC Comment DIFF FINAL Differential Comment Prothrombin Time 11.2 SEC Prothromb Time International 1.0 RATIO Ratio Activated Partial 24.8 SEC Thromboplast Time D-Dimer Quantitative (PE/DVT) 10.41 MG/L FEU Sodium Level 140 MEQ/L Potassium Level 4.5 MEQ/L Chloride Level 104 MEQ/L Carbon Dioxide Level 28.5 MEQ/L Anion Gap 8 MEQ/L Blood Urea Nitrogen 14 MG/DL Creatinine 0.85 MG/DL Estimat Glomerular Filtration 93 ML/MIN Rate Random Glucose 133 MG/DL Calcium Level 8.6 MG/DL MDM Medical Decision Making Medical Screen Exam Complete: Yes Emergency Medical Condition: Yes Medical Record Reviewed: Yes Differential Diagnosis PE, pneumothorax, pleurisy Narrative Course I have reviewed the patient's electronic medical record. IV placed CBC is normal Metabolic profile is normal D-dimer is very elevated Coagulation studies are normal I reviewed his chest x-ray which is normal He has multiple risk factors for PE so I ordered a CT pulmonary angiogram which reveals bilateral extensive PE This is a critical finding requiring inpatient admission I've initiated heparin drip with bolus Placed a call to the hospitalist for admission After receiving IV contrast patient in a hypotensive episode down to 86/60 I gave him a bolus 1 L normal saline IV Blood pressure is now back up to 120 systolic Diagnosis Primary Impression: Acute pulmonary embolus Qualified Code: I26.99 - Other acute pulmonary embolism without acute cor pulmonale Admitting Information Admitting Physician Requests: Admit Dhaval Brito MD Dec 16, 2016 14:43
[2016-12-16 14:54] LABS: AUTOMATED NEUTROPHIL # 13.6 TH/MM3 (1.8-7.7); BASOPHIL # 0.1 TH/MM3 (0-0.2); BASOPHIL % 0.5 % (0.0-2.0); EOSINOPHIL % 0.3 % (0.0-4.0); HEMATOCRIT 44.1 % (39.0-51.0); LYMPH % 6.6 % (9.0-44.0); LYMPHOCYTE # 1.1 TH/MM3 (1.0-4.8); MEAN CELL VOLUME 84.2 FL (80.0-100.0); MEAN CORPUSCULAR HEMOGLOBIN 27.6 PG (27.0-34.0); MEAN CORPUSCULAR HGB CONC 32.8 % (32.0-36.0); MONO % 6.6 % (0.0-8.0); PLATELET COUNT 311 TH/MM3 (150-450); RED BLOOD COUNT 5.24 MIL/MM3 (4.50-5.90); RED CELL DISTRIBUTION WIDTH 12.6 % (11.6-17.2); WHITE BLOOD COUNT 15.9 TH/MM3 (4.0-11.0)
[2016-12-16 14:58] LABS: HEMO FLAGS DIFF FINAL
[2016-12-16 15:04] LABS: CHLORIDE 104 MEQ/L (98-107); POTASSIUM 4.5 MEQ/L (3.5-5.1); SODIUM (NA) 140 MEQ/L (136-145)
[2016-12-16 15:07] LABS: ANION GAP 8 MEQ/L (5-15); BICARBONATE 28.5 MEQ/L (21.0-32.0); BLOOD UREA NITROGEN 14 MG/DL (7-18)
[2016-12-16 15:10] LABS: GLOMERULAR FILTRATION RATE 93 ML/MIN (>89)
--- NOTE | 2016-12-16 15:28 | RADHPO ---
EXAM DATE/TIME: 12/16/2016 14:46 [facility] COMPARISON: CHEST SINGLE AP, November 28, 2016, 12:07. INDICATIONS : Chest pain for 2-3 days post fall MEDICAL HISTORY : None. SURGICAL HISTORY : None. ENCOUNTER: Initial ACUITY: 2 days PAIN SCORE: 8/10 LOCATION: Bilateral chest FINDINGS: A single view of the chest demonstrates the lungs to be symmetrically aerated without evidence of mas s, infiltrate or effusion. The cardiomediastinal contours are unremarkable. Osseous structures are intact. CONCLUSION: No acute disease. Nahun Workman MD on December 16, 2016 at 15:26 Board Certified Radiologist. This report was verified electronically.
[2016-12-16 15:36] LABS: APTT (PATIENT) 24.8 SEC (24.3-30.1); PROTHROMBIN TIME - PATIENT 11.2 SEC (9.8-11.6)
[2016-12-16] MEDS ORDERED: IOHEXOL 350 MG/ML 10 ML VIAL (for RAD DIAG) IV ONE (16:43)
--- NOTE | 2016-12-16 16:52 | RADHPO ---
EXAM DATE/TIME: 12/16/2016 16:28 [facility] COMPARISON: CHEST SINGLE AP, December 16, 2016, 14:46. INDICATIONS : Shortness of breath and right sided chest pain. IV CONTRAST: 64 cc Omnipaque 350 (iohexol) IV RADIATION DOSE: 21.21 CTDIvol (mGy) MEDICAL HISTORY : Hypertension. SURGICAL HISTORY : None. ENCOUNTER: Initial ACUITY: 1 day PAIN SCALE: 7/10 LOCATION: Right chest TECHNIQUE: Volumetric scanning of the chest was performed using a pulmonary embolism protocol MIP images were re constructed. Using automated exposure control and adjustment of the mA and/or kV according to patien t size, radiation dose was kept as low as reasonably achievable to obtain optimal diagnostic quality images. FINDINGS: PULMONARY ARTERIES: The main pulmonary artery is intact. There is extensive thrombus beginning in the distal right and le ft main pulmonary arteries and extending into the lower lobe. thrombus extends into the middle lobe p ulmonary arteries as well. LUNGS: There is no pneumothorax . There is patchy alveolar infiltrate in the posterior right lower lobe. No concerning pulmonary nodule is visualized. PLEURAE: There is a small right pleural effusion. MEDIASTINUM: There is good visualization of the great vessels of the middle mediastinum. No evidence of mediastin al or hilar adenopathy/mass. MUSCULOSKELETAL: Within normal limits for patient age. MISCELLANEOUS: The visualized upper abdominal organs demonstrate no acute abnormality. CONCLUSION: 1. Extensive bilateral pulmonary emboli. 2. Small right pleural effusion with infiltrate in the right lower lobe. Nahun Workman MD on December 16, 2016 at 16:44 Board Certified Radiologist. This report was verified electronically.
[2016-12-16] MEDS ORDERED: SODIUM CHLOR 0.9% 1000 ML INJ 1,000 ML IV ONE (17:45)
[2016-12-16] MEDS ORDERED: HEPARIN SODIUM - IV 10,000 UNITS/10 ML VIAL IV ONE (17:45)
[2016-12-16] MEDS: HEPARIN-D5W INJ 250 ML IV SCH (18:17)
[2016-12-16] MEDS ORDERED: ONDANSETRON HCL 4 MG/2 ML VIAL IVP PRN (18:45)
[2016-12-16] MEDS ORDERED: SODIUM CHLORIDE 0.9% FLUSH 5 ML FLUSH FLUSH PRN (18:45)
[2016-12-16] MEDS ORDERED: NALOXONE HCL 0.4 MG/ML AMP IV PRN (18:45)
[2016-12-16] MEDS ORDERED: ACETAMINOPHEN 325 MG TAB PO PRN (18:45)
[2016-12-16] MEDS ORDERED: SODIUM CHLOR 0.9% 1000 ML INJ 1,000 ML IV SCH ×2 (19:00→21:30)
[2016-12-16] MEDS ORDERED: MORPHINE SULFATE 4 MG/ML INJ IV PRN (20:30)
[2016-12-16 20:40] LABS: BLOOD GAS CARBOXYHEMOGLOBIN 1.8 % (0-4); BLOOD GAS HCO3 23 mmol/L (22-26); BLOOD GAS O2 HGB SATURATION 94 % (90-100); BLOOD GAS OXYGEN CONTENT 18.8 Vol % (12.0-20.0); BLOOD GAS PCO2 34 mmHG (38-42); BLOOD GAS PO2 82 mmHG (61-120); BLOOD GAS TOTAL HGB 14.2 G/DL (12.0-16.0); CRITICAL VALUE YES; DRAW SITE RT RADIAL; LITER FLOW 3 L/M; OXYGEN DEVICE NASAL CANNULA; TEMP CORR TO 98.6
[2016-12-16 20:41] LABS: NUMBER OF ARTERIAL PUNCTURES 3; STAT YES; ULNAR PULSE Y
--- NOTE | 2016-12-16 20:54 | RADHPO ---
EXAM DATE/TIME: 12/16/2016 19:40 [facility] COMPARISON: No previous studies available for comparison. INDICATIONS : Pulmonary embolism. MEDICAL HISTORY : Hypertension. Anticoagulant therapy, Aspirin. Post traumatic stress disorder. SURGICAL HISTORY : Left knee tendon repair. Right knee tumor removal. ENCOUNTER: Initial ACUITY: 1 day PAIN SCORE: 9/10 LOCATION: Bilateral legs. TECHNIQUE: Venous ultrasound of the left and right leg was performed from the inguinal ligament to the proximal calf. Real-time, color Doppler and spectral tracing, compression and augmentation techniques were us ed. FINDINGS: RIGHT LEG: There is normal compressibility of the deep venous system from the inguinal region to the proximal ca lf. No echogenic clot is seen in the lumen of the common femoral, femoral, popliteal, and posterior tibial veins. There is a normal response of the venous system to proximal and distal augmentation an d respiration. LEFT LEG: There is normal compressibility of the deep venous system from the inguinal region to the proximal ca lf. No echogenic clot is seen in the lumen of the common femoral, femoral, popliteal, and posterior tibial veins. There is a normal response of the venous system to proximal and distal augmentation an d respiration. CONCLUSION: No DVT. Candelario Brown MD on December 16, 2016 at 20:52 Board Certified Radiologist. This report was verified electronically.
[2016-12-16 22:10] LABS: CHLORIDE 104 MEQ/L (98-107); POTASSIUM 4.5 MEQ/L (3.5-5.1); SODIUM (NA) 140 MEQ/L (136-145)
--- NOTE | 2016-12-16 22:13 | MH ---
cc: SAI MAIER MD DATE OF ADMISSION 12/16/2016 DATE OF [address] Hough REASON FOR ADMISSION Chest pain and shortness of breath.. HISTORY OF PRESENT ILLNESS The patient is a very pleasant 56-year male without any significant past medical history. As the patient, he had the knee surgery done in the first week of October. Two days ago he started having right-sided chest pain. It was mild and today it was moderate in intensity and some shortness of breath. He came to the ER. In the ER was evaluated by the ER physician. The patient was found to have bilateral PE. As per patient, deep breath causes him more pain. There is no nausea or vomiting. There is no dizziness. There is no abdominal pain. There is no back pain. He has no dizziness. No fever or chills. Going through the records, the patient had a CT scan and after receiving IV contrast his blood pressure went down to 86/60. Bolus of normal saline was given and after that, blood pressure was okay. PAST MEDICAL HISTORY Denies any high blood pressure, diabetes, heart condition, lung condition. MEDICATIONS Just aspirin. ALLERGIES NO KNOWN DRUG ALLERGIES. SOCIAL HISTORY The patient drinks beer five times a week and on weekends during games several beers. He does not do any drugs. Does not smoke. . FAMILY HISTORY The patient's mother had liver cancer. Father had colon cancer. REVIEW OF SYSTEMS Described in History of Present Illness, 10 systems reviewed. PHYSICAL EXAMINATION GENERAL: The patient is alert and oriented x3, well-built, well-nourished lying on bed, VITAL SIGNS: Respiratory rate is 94, blood pressure 129/88, pulse around 120s, pulse oximetry 95% on 2 liters on monitor. pulse is regular. HEENT: Head atraumatic normocephalic. Eyes - negative conjunctival icterus, mouth unremarkable. No increased JVD. Central trachea. CHEST: Some decreased air entry bibasilarly otherwise unremarkable. No wheeze. No rhonchi, rales noted. CARDIOVASCULAR: S1, s2 audible. Sinus tachycardia. GI: Abdomen soft and no organomegaly. Positive bowel sounds. MUSCULOSKELETAL: Extremities no cyanosis noted. There is a positive soft cast on the left leg. It is covering the knee as well as half of the thigh and most of his leg on the left side. SKIN: Warm and moist. PSYCHIATRIC: Appropriate mood DIRECTOR GENERAL: Alert and oriented. Normal facial features. Normal speech. Moving bilateral upper extremity and toes. LABORATORY DATA ABG - pH of 7.4, CO2 of 34, O2 of 82 on three liters. Oxygen saturation of 94%. BMP within normal limit and it was 133. WBC , hemoglobin/hematocrit count within normal limits. PT is 11.2, INR one and APTT is 24.8, D-dimer 10.41. IMAGING STUDIES Lower extremity ultrasound was done which showed no DVT. Chest x-ray - No acute disease. CT angio was done which shows extensive bilateral PE. Small right pleural effusion with infiltrate in the right lower lobe. CARDIOLOGY STUDIES EKG was done, showed sinus tachycardiac rate of 136 beats per minute. ASSESSMENT 1. Extensive bilateral PE with shortness of breath and right-sided pain worse on deep breathing. The patient also had a low blood pressure after given the IV contrast. Now heart rate is in 130s. Plan to transfer him to intensive care unit in [facility]. Continue IV heparin. Also have labs in the morning. IV hydration as well. Plan for echocardiogram and intensive consult. Discussed with asset administrator. We will repeat CBC, BMP in the morning. Monitor H&H. 2. Recent knee surgery and quadriceps surgery. Keep on pain medications. 3. We will keep the patient on analgesics. 4. P.r.n. antiemetics. 5. Condition is critical. Prognosis guarded. Discussed with the patient and at bedside in detail. We will transfer patient from [facility] to intensive care in [facility]. Further recommendation to follow as per patient progress. Total critical care time spent in management of this patient is approximately 45 minutes. Sai Maier MD JP/ /9:27 PM /9:43 PM
[2016-12-16 22:15] LABS: ANION GAP 9 MEQ/L (5-15); BICARBONATE 26.8 MEQ/L (21.0-32.0); BLOOD UREA NITROGEN 11 MG/DL (7-18)
[2016-12-16 22:18] LABS: GLOMERULAR FILTRATION RATE 79 ML/MIN (>89)
[2016-12-16] MEDS: SODIUM CHLORIDE 0.9% FLUSH 5 ML FLUSH FLUSH SCH (23:08)
[2016-12-16] MEDS: MORPHINE SULFATE 4 MG/ML INJ IV PRN (23:23)
[2016-12-16] MEDS ORDERED: HEPARIN SODIUM - IV 10,000 UNITS/10 ML VIAL IV PRN ×2 (23:45)
[2016-12-17] VITALS (13 sets, daily range): BP systolic 126–149; BP diastolic 80–92; PULSE 109–124; RESP 20–24; TEMP 97–99.6; O2SAT 94–100
[2016-12-17 01:01] LABS: APTT (PATIENT) 49.2 SEC (24.3-30.1); PROTHROMBIN TIME - PATIENT 11.3 SEC (9.8-11.6)
[2016-12-17] MEDS: MORPHINE SULFATE 4 MG/ML INJ IV PRN ×4 (01:57→10:06)
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
[2016-12-17] MEDS ORDERED: MORPHINE SULFATE 4 MG/ML INJ IV PUSH PRN (03:00)
[2016-12-17] MEDS: PANTOPRAZOLE SODIUM 40 MG VIAL IV PUSH SCH ×2 (07:00→19:00)
[2016-12-17] MEDS ORDERED: ALTEPLASE INJ 50 MG in WATER STERILE FOR INJ 100 ML IV ONE (07:15)
[2016-12-17] MEDS ORDERED: MISCELLANEOUS NURSING INFORMATION OTHER PRN (07:15)
[2016-12-17 07:24] LABS: HEMATOCRIT 40.3 % (39.0-51.0); MEAN CELL VOLUME 85.9 FL (80.0-100.0); MEAN CORPUSCULAR HEMOGLOBIN 28.5 PG (27.0-34.0); MEAN CORPUSCULAR HGB CONC 33.2 % (32.0-36.0); PLATELET COUNT 283 TH/MM3 (150-450); RED BLOOD COUNT 4.69 MIL/MM3 (4.50-5.90); RED CELL DISTRIBUTION WIDTH 13.2 % (11.6-17.2); REVIEW FLAG FINAL; WHITE BLOOD COUNT 22.5 TH/MM3 (4.0-11.0)
[2016-12-17 07:26] LABS: APTT (PATIENT) 27.8 SEC (24.3-30.1)
[2016-12-17 07:42] LABS: BICARBONATE 24.9 MEQ/L (21.0-32.0); POTASSIUM 5.3 MEQ/L (3.5-5.1)
[2016-12-17] MEDS ORDERED: ALTEPLASE INJ 50 MG in WATER STERILE FOR INJ 50 ML IV ONE (08:00)
[2016-12-17] MEDS: SODIUM CHLORIDE 0.9% FLUSH 5 ML FLUSH FLUSH SCH (08:52)
[2016-12-17] MEDS: ACETAMINOPHEN/HYDROcodone 325 MG/5 MG TAB PO PRN ×3 (10:07→21:12)
--- NOTE | 2016-12-17 11:56 | HHI.PR ---
Vitals/Results Intake & Output 12/16/16 12/16/16 12/17/16 15:00 23:00 07:00 Intake Total 1240 ml 559 ml Output Total 550 ml Balance 1240 ml 9 ml Intake Oral 240 ml IV Total 1000 ml 559 ml Output Urine Total 550 ml Vital Signs Vital Signs Date Time Temp Pulse Resp B/P Pulse Ox O2 Delivery O2 Flow Rate FiO2 12/17/16 10:36 98.0 117 20 135/86 95 12/17/16 10:11 18 12/17/16 10:00 122 12/17/16 09:14 99 Nasal Cannula 3.00 12/17/16 08:00 97.0 124 22 131/90 100 12/17/16 08:00 124 12/17/16 08:00 96 Nasal Cannula 3.00 12/17/16 04:00 122 12/17/16 04:00 98.4 122 24 139/92 95 12/17/16 02:00 122 12/17/16 00:00 99.6 124 24 136/86 95 12/16/16 22:32 97 Nasal Cannula 4.00 12/16/16 22:00 130 20 125/84 95 Nasal Cannula 2 12/16/16 21:00 128 20 129/88 95 Nasal Cannula 2 12/16/16 19:39 136 24 151/92 92 Nasal Cannula 2 12/16/16 19:39 135 24 92 Nasal Cannula 2 12/16/16 17:35 115 20 119/83 96 Nasal Cannula 2 12/16/16 16:49 112 20 86/60 94 Nasal Cannula 2 12/16/16 16:25 109 18 133/80 96 Room Air 12/16/16 14:20 112 16 95 Room Air 12/16/16 14:18 99.7 112 16 157/85 95 Room Air 12/16/16 14:13 99.1 122 16 110/78 95 CBC/BMP: 12/17/16 0655 12/17/16 0655 Lab Results Laboratory Tests Test 12/16/16 12/16/16 12/16/16 12/16/16 14:49 20:35 21:48 23:45 White Blood Count 15.9 TH/MM3 Red Blood Count 5.24 MIL/MM3 Hemoglobin 14.4 GM/DL Hematocrit 44.1 % Mean Corpuscular Volume 84.2 FL Mean Corpuscular Hemoglobin 27.6 PG Mean Corpuscular Hemoglobin 32.8 % Concent Red Cell Distribution Width 12.6 % Platelet Count 311 TH/MM3 Mean Platelet Volume 8.2 FL Neutrophils (%) (Auto) 86.0 % Lymphocytes (%) (Auto) 6.6 % Monocytes (%) (Auto) 6.6 % Eosinophils (%) (Auto) 0.3 % Basophils (%) (Auto) 0.5 % Neutrophils # (Auto) 13.6 TH/MM3 Lymphocytes # (Auto) 1.1 TH/MM3 Monocytes # (Auto) 1.1 TH/MM3 Eosinophils # (Auto) 0.0 TH/MM3 Basophils # (Auto) 0.1 TH/MM3 CBC Comment DIFF FINAL Differential Comment Prothrombin Time 11.2 SEC Prothromb Time International 1.0 RATIO Ratio Activated Partial 24.8 SEC Thromboplast Time D-Dimer Quantitative (PE/DVT) 10.41 MG/L FEU Sodium Level 140 MEQ/L 140 MEQ/L Potassium Level 4.5 MEQ/L 4.5 MEQ/L Chloride Level 104 MEQ/L 104 MEQ/L Carbon Dioxide Level 28.5 MEQ/L 26.8 MEQ/L Anion Gap 8 MEQ/L 9 MEQ/L Blood Urea Nitrogen 14 MG/DL 11 MG/DL Creatinine 0.85 MG/DL 0.98 MG/DL Estimat Glomerular Filtration 93 ML/MIN 79 ML/MIN Rate Random Glucose 133 MG/DL 162 MG/DL Calcium Level 8.6 MG/DL 8.5 MG/DL Troponin I LESS THAN 0.02 NG/ML B-Type Natriuretic Peptide 24 PG/ML Blood Gas Puncture Site RT RADIAL Blood Gas Patient Temperature 98.6 Blood Gas HCO3 23 mmol/L Blood Gas Base Excess -1.0 mmol/L Blood Gas Oxygen Saturation 94 % Arterial Blood pH 7.44 Arterial Blood Partial 34 mmHG Pressure CO2 Arterial Blood Partial 82 mmHG Pressure O2 Arterial Blood Oxygen Content 18.8 Vol % Arterial Blood 1.8 % Carboxyhemoglobin Arterial Blood Methemoglobin 1.0 % Blood Gas Hemoglobin 14.2 G/DL Oxygen Delivery Device NASAL CANNULA Blood Gas Liter Flow 3 L/M Nasal Screen MRSA (PCR) NEGATIVE Test 12/17/16 12/17/16 00:32 06:55 Prothrombin Time 11.3 SEC Prothromb Time International 1.0 RATIO Ratio Activated Partial 49.2 SEC 27.8 SEC Thromboplast Time White Blood Count 22.5 TH/MM3 Red Blood Count 4.69 MIL/MM3 Hemoglobin 13.4 GM/DL Hematocrit 40.3 % Mean Corpuscular Volume 85.9 FL Mean Corpuscular Hemoglobin 28.5 PG Mean Corpuscular Hemoglobin 33.2 % Concent Red Cell Distribution Width 13.2 % Platelet Count 283 TH/MM3 Mean Platelet Volume 9.4 FL Sodium Level 134 MEQ/L Potassium Level 5.3 MEQ/L Chloride Level 101 MEQ/L Carbon Dioxide Level 24.9 MEQ/L Anion Gap 8 MEQ/L Blood Urea Nitrogen 12 MG/DL Creatinine 0.95 MG/DL Estimat Glomerular Filtration 82 ML/MIN Rate Random Glucose 145 MG/DL Calcium Level 8.8 MG/DL Tere Sapp Dec 17, 2016 11:56
[2016-12-17 12:32] LABS: HEMOGLOBIN A1a 0.9 %; HEMOGLOBIN A1b 1.7 %; HEMOGLOBIN Ao 85.1 %; HEMOGLOBIN P3 3.8 %
--- NOTE | 2016-12-17 12:38 | HHI.PR ---
Subjective Remarks Patient has some shortness of breath still feeling pressure on a deep breathing with some right sided chest pain. Was not able to sleep last night No nausea vomiting Abdominal pain No other complaint Review of systems a 10 point system otherwise unremarkable Objective Objective Results - Vital Signs Date Time Temp Pulse Resp B/P Pulse Ox O2 Delivery O2 Flow Rate FiO2 12/17/16 12:00 112 12/17/16 11:07 18 12/17/16 10:36 98.0 117 20 135/86 95 12/17/16 10:11 18 12/17/16 10:00 122 12/17/16 09:14 99 Nasal Cannula 3.00 12/17/16 08:00 97.0 124 22 131/90 100 12/17/16 08:00 124 12/17/16 08:00 96 Nasal Cannula 3.00 12/17/16 04:00 122 12/17/16 04:00 98.4 122 24 139/92 95 12/17/16 02:00 122 12/17/16 00:00 99.6 124 24 136/86 95 12/16/16 22:32 97 Nasal Cannula 4.00 12/16/16 22:00 130 20 125/84 95 Nasal Cannula 2 12/16/16 21:00 128 20 129/88 95 Nasal Cannula 2 12/16/16 19:39 136 24 151/92 92 Nasal Cannula 2 12/16/16 19:39 135 24 92 Nasal Cannula 2 12/16/16 17:35 115 20 119/83 96 Nasal Cannula 2 12/16/16 16:49 112 20 86/60 94 Nasal Cannula 2 12/16/16 16:25 109 18 133/80 96 Room Air 12/16/16 14:20 112 16 95 Room Air 12/16/16 14:18 99.7 112 16 157/85 95 Room Air 12/16/16 14:13 99.1 122 16 110/78 95 I/O 12/16/16 12/16/16 12/16/16 12/17/16 12/17/16 12/17/16 07:00 15:00 23:00 07:00 15:00 23:00 Intake Total 1240 ml 559 ml Output Total 550 ml Balance 1240 ml 9 ml Intake Oral 240 ml IV Total 1000 ml 559 ml Output Urine Total 550 ml Result Diagram: 12/17/16 0655 12/17/16 06 Other Results Laboratory Tests Test 12/16/16 12/16/16 12/16/16 12/16/16 14:49 20:35 21:48 23:45 White Blood Count 15.9 Red Blood Count 5.24 Hemoglobin 14.4 Hematocrit 44.1 Mean Corpuscular Volume 84.2 Mean Corpuscular Hemoglobin 27.6 Mean Corpuscular Hemoglobin 32.8 Concent Red Cell Distribution Width 12.6 Platelet Count 311 Mean Platelet Volume 8.2 Neutrophils (%) (Auto) 86.0 Lymphocytes (%) (Auto) 6.6 Monocytes (%) (Auto) 6.6 Eosinophils (%) (Auto) 0.3 Basophils (%) (Auto) 0.5 Neutrophils # (Auto) 13.6 Lymphocytes # (Auto) 1.1 Monocytes # (Auto) 1.1 Eosinophils # (Auto) 0.0 Basophils # (Auto) 0.1 CBC Comment DIFF FINAL Differential Comment Prothrombin Time 11.2 Prothromb Time International 1.0 Ratio Activated Partial 24.8 Thromboplast Time D-Dimer Quantitative (PE/DVT) 10.41 Sodium Level 140 140 Potassium Level 4.5 4.5 Chloride Level 104 104 Carbon Dioxide Level 28.5 26.8 Anion Gap 8 9 Blood Urea Nitrogen 14 11 Creatinine 0.85 0.98 Estimat Glomerular Filtration 93 79 Rate Random Glucose 133 162 Calcium Level 8.6 8.5 Troponin I LESS THAN 0.02 B-Type Natriuretic Peptide 24 Blood Gas Puncture Site RT RADIAL Blood Gas Patient Temperature 98.6 Blood Gas HCO3 23 Blood Gas Base Excess -1.0 Blood Gas Oxygen Saturation 94 Arterial Blood pH 7.44 Arterial Blood Partial 34 Pressure CO2 Arterial Blood Partial 82 Pressure O2 Arterial Blood Oxygen Content 18.8 Arterial Blood 1.8 Carboxyhemoglobin Arterial Blood Methemoglobin 1.0 Blood Gas Hemoglobin 14.2 Oxygen Delivery Device NASAL CANNULA Blood Gas Liter Flow 3 Nasal Screen MRSA (PCR) NEGATIVE Test 12/17/16 12/17/16 00:32 06:55 Prothrombin Time 11.3 Prothromb Time International 1.0 Ratio Activated Partial 49.2 27.8 Thromboplast Time White Blood Count 22.5 Red Blood Count 4.69 Hemoglobin 13.4 Hematocrit 40.3 Mean Corpuscular Volume 85.9 Mean Corpuscular Hemoglobin 28.5 Mean Corpuscular Hemoglobin 33.2 Concent Red Cell Distribution Width 13.2 Platelet Count 283 Mean Platelet Volume 9.4 Sodium Level 134 Potassium Level 5.3 Chloride Level 101 Carbon Dioxide Level 24.9 Anion Gap 8 Blood Urea Nitrogen 12 Creatinine 0.95 Estimat Glomerular Filtration 82 Rate Random Glucose 145 Calcium Level 8.8 Physical Exam Physical Exam GENERAL: The patient is alert and oriented x3, well-built, well-nourished lying on bed, without any pericardial respiratory distress VITAL SIGNS: Reviewed HEENT: Head atraumatic normocephalic. Eyes - negative conjunctival icterus, mouth unremarkable. No increased JVD. Central trachea. CHEST: Some decreased air entry bibasilarly otherwise unremarkable. No wheeze. No rhonchi, rales noted. CARDIOVASCULAR: S1, s2 audible. Sinus tachycardia. GI: Abdomen soft and no organomegaly. Positive bowel sounds. MUSCULOSKELETAL: Extremities no cyanosis noted. There is a positive soft cast on the left leg. It is covering the knee as well as half of the thigh and most of his leg on the left side. SKIN: Warm and moist. PSYCHIATRIC: Appropriate mood RO[employer]: Alert and oriented. Normal facial features. Normal speech. Moving bilateral upper extremity and toes. A/P Assessment and Plan 1. Extensive bilateral PE status post TPA. Stat echo was done last night. Appreciate Dr. Kelly help. Now heart rate is in 1 teens. Continue IV heparin. Also have labs in the morning. IV hydration as well. We will repeat CBC, BMP in the morning. Monitor H&H. 2. Recent knee surgery and quadriceps surgery. Keep on pain medications. 3. We will keep the patient on analgesics. 4. P.r.n. antiemetics. 5. Condition is critical. Prognosis guarded. Increase WBC count will monitor Slightly increased potassium will monitor Discussed with the patient and at bedside in detail. Further recommendation to follow as per patient progress. Antwan Gupta MD Dec 17, 2016 12:38 Antwan Gupta MD Dec 17, 2016 12:38
[2016-12-17] MEDS ORDERED: TEMAZEPAM 15 MG CAP PO PRN (13:00)
[2016-12-17 17:18] LABS: APTT (PATIENT) 40.1 SEC (24.3-30.1)
--- NOTE | 2016-12-17 17:20 | EKG ---
Date Performed: 12/16/2016 Time Performed: 20:11:02 PTAGE: 56 years EKG: Sinus tachycardia Within normal limits Compared to previous tracing, HR is faster, otherwis e no significant change Abnormal ECG PREVIOUS TRACING : 11/28/2016 12.26 DOCTOR: Cristhian Ortiz Interpretating Date/Time 12/17/2016 17:18:53
[2016-12-17 23:17] LABS: APTT (PATIENT) 47.8 SEC (24.3-30.1)
[2016-12-18] VITALS (14 sets, daily range): BP systolic 119–144; BP diastolic 72–81; PULSE 84–100; RESP 18–22; TEMP 98.2–98.7; O2SAT 96–100
[2016-12-18 02:24] LABS: INTERNATIONAL NORMALIZED RATIO 1.1 RATIO; PROTHROMBIN TIME - PATIENT 12.1 SEC (9.8-11.6)
[2016-12-18] MEDS: ACETAMINOPHEN/HYDROcodone 325 MG/5 MG TAB PO PRN ×3 (05:48→22:27)
[2016-12-18] MEDS: PANTOPRAZOLE SODIUM 40 MG VIAL IV PUSH SCH ×2 (05:48→19:48)
[2016-12-18 06:25] LABS: HEMATOCRIT 36.7 % (39.0-51.0); MEAN CORPUSCULAR HEMOGLOBIN 28.9 PG (27.0-34.0); MEAN CORPUSCULAR HGB CONC 34.1 % (32.0-36.0); PLATELET COUNT 216 TH/MM3 (150-450); RED BLOOD COUNT 4.32 MIL/MM3 (4.50-5.90); RED CELL DISTRIBUTION WIDTH 13.3 % (11.6-17.2); REVIEW FLAG FINAL; WHITE BLOOD COUNT 14.8 TH/MM3 (4.0-11.0)
--- NOTE | 2016-12-18 06:27 | HHI.CCPN ---
Subjective Remarks/Hospital Course 56-year-old male who has no significant PMH. He underwent L quadriceps tendon repair 11/28/[address] Posey. He states that 2 days ago he developed some pain in his right lower chest , pleuritic. Initial pain lasted few minutes and then got better, much worse today. Denies shortness of breath. He presented to [facility] where workup revealed a d-dimer 10. He underwent CTPA that demonstrated bilateral pulmonary emboli in distal bilateral main pulmonary arteries. He was initially normotensive with BP 110/78 with heart rate 110 to 120s. On 2 L NC. [facility] His blood pressure did drop to 86/60 and he was bolused 1 L normal saline. Blood pressure then improved to 110s over 80s but heart rate remains in 130s. Dr. Gupta transferred patient to [facility] and called me for critical care medicine consult. While patient was en route, I called Dr. Posey with orthopaedics to discuss possibility of thrombolysis. Patients surgery is >14 [address] out and furthermore Dr[address] Posey states that he had very uncomplicated surgery with <100 mL of blood loss and thus TPA would seem a reasonable option. Called Dr. Cortez for stat Echo. 12/18: Due to evidence of RV strain and hypotension on arrival coupled with submassive clot burden, the patient received continuing heparin and 50 mg tPA yesterday without problems. He is normotensive and JVD has subsided. Continue heparin drip and convert to oral anticoagulation. Objective Vital Signs Date Time Temp Pulse Resp B/P Pulse Ox O2 Delivery O2 Flow Rate FiO2 12/18/16 00:00 98.7 96 20 140/77 98 12/17/16 20:37 Nasal Cannula 2.00 Intake and Output 12/17/16 12/17/16 12/18/16 08:00 16:00 00:00 Intake Total 559 ml 722 ml 443 ml Output Total 550 ml 500 ml 375 ml Balance 9 ml 222 ml 68 ml Result Diagram: 12/17/1665412/17/16654 Objective Remarks blood pressure 144/77 pulse 96 respirations 18 97 % on 3 L nasal cannula GENERAL: Well-nourished, well-developed patient. SKIN: Warm and dry. No rash HEAD: Atraumatic. Normocephalic. EYES: No scleral icterus. No injection or drainage. ENT: No nasal bleeding or discharge. Mucous membranes pink and moist. NECK: Trachea midline. Airway widely patent. CARDIOVASCULAR: Less tachycardic, regular. No murmurs rubs or gallops. Neck veins full, not distended. RESPIRATORY: Clear to auscultation. Breath sounds equal bilaterally. No accessory muscle use. GASTROINTESTINAL: Abdomen soft, non-tender, nondistended. Bowel sounds active. MUSCULOSKELETAL: Extremities without clubbing, cyanosis, or edema. Left lower extremity in velcro splint. Strong distal PT pulses NEUROLOGICAL: Awake and alert. No obvious cranial nerve deficits. Motor grossly within normal limits. Five out of 5 muscle strength in the arms and legs. Normal speech. A/P Assessment and Plan NEURO: Lortab as needed for pain. Morphine as needed for breakthrough pain. RESP/CV: Acute bilateral submassive pulmonary emboli He has significant clot burden and had an isolated episode of blood pressure 86 over 60s. He is tachycardic in the 130s. Obtained a stat 2-D echo. Discussed with Dr. Cortez. There is a positive Cook sign and evidence of moderate RV strain. Patient meets criteria for fibrinogen lysis for submassive PE with RV strain. Discussed risk benefits in detail including TPA affording benefit of improved dyspnea, earlier resolution of RV dysfunction, improved pulmonary artery pressures, decreased risk of recurrent PE, earlier discharge. Overall will facilitate return to activity (improved functional outcomes) with probable decreased risk of RV failure and chronic pulmonary HTN. With that comes increased risk of bleeding, including risk of intracerebral hemorrhage ~1-2%. Will be using TPA regimen consisting of 10 mg IV bolus followed by 40 mg IV infusion over 2 hours which appears to minimize this risk of bleeding. -Continue heparin. GI: Heart healthy diet. FEN/RENAL: Place landon prior to TPA. ID: Monitor for e/o infection. HEME: Provoked PE secondary to recent LE surgery. Would recommend anticoagulation minimum 6 months. Heparin infusion initiated. Patient now accepts risks of TPA and would like to proceed with fibrinolytic therapy. PTT 27. Will continue heparin drip. TPA 10 mg IV followed by 40 mg IV over 2 hours -> done, well tolerated. ENDO: Euglycemic PROPH: Heparin drip. Protonix for stress ulcer prophylaxis ACCESS: Will place additional PIV prior to TPA. Discussed with Dr. Posey (ortho), Discussed with Dr. Cortez (cardiology) Overall impression: Critically ill man with submassive pulmonary embolism treated with heparin and tPA. Improved hemodynamics. Chest discomfort persists. Potential for rapid decline remains elevated but response to lytics has been good. Critical Care 38 mins Glenroy Erickson MD Dec 18, 2016 06:27
[2016-12-18 06:42] LABS: APTT (PATIENT) 39.5 SEC (24.3-30.1)
[2016-12-18 07:15] LABS: BICARBONATE 30.3 MEQ/L (21.0-32.0); POTASSIUM 4.3 MEQ/L (3.5-5.1)
[2016-12-18] MEDS: SODIUM CHLORIDE 0.9% FLUSH 5 ML FLUSH FLUSH SCH ×2 (09:00→19:48)
--- NOTE | 2016-12-18 13:07 | HHI.PR ---
Subjective Subjective Remarks Alert talkative Anxious over current condition Appetite fair Chest pain, constant, heavy sensation Cough (Judy Nath) Review of Systems Constitutional Constitutional: Fatigue, Weakness (Judy Nath) Pulmonary Respiratory: Coughing, Shortness of Breath (Judy Nath) Cardiology CV: Chest Pain CV Remarks No tenderness (Judy Nath) Musculoskeletal MS: Weakness, Swelling (left lower leg, 1+ ankle edema) (Judy Nath) Psychiatric Psychiatric: Normal Mood, Anxiety (Judy Nath) Vitals/Results Intake & Output 12/17/16 12/17/16 12/18/16 15:00 23:00 07:00 Intake Total 722 ml 443 ml 444 ml Output Total 500 ml 375 ml 450 ml Balance 222 ml 68 ml -6 ml Intake Oral 400 ml 200 ml 120 ml IV Total 322 ml 243 ml 324 ml Output Urine Total 500 ml 375 ml 450 ml Vital Signs Vital Signs Date Time Temp Pulse Resp B/P Pulse Ox O2 Delivery O2 Flow Rate FiO2 12/18/16 10:00 99 12/18/16 08:00 98.3 89 20 136/72 98 12/18/16 08:00 89 12/18/16 08:00 Nasal Cannula 2.00 12/18/16 07:48 96 Nasal Cannula 2.00 12/18/16 06:00 100 12/18/16 04:00 98.6 96 20 119/74 96 12/18/16 04:00 96 12/18/16 02:00 94 12/18/16 00:00 96 12/18/16 00:00 98.7 96 20 140/77 98 12/17/16 20:37 95 Nasal Cannula 2.00 12/17/16 20:00 98.5 110 20 149/80 94 12/17/16 20:00 110 12/17/16 20:00 94 Nasal Cannula 3.00 12/17/16 18:00 109 12/17/16 16:36 18 12/17/16 16:00 112 12/17/16 16:00 98.5 110 20 126/82 99 12/17/16 14:43 18 12/17/16 14:00 112 (Judy Nath) CBC/BMP: 12/18/16 0555 12/18/16 0555 Lab Results Laboratory Tests Test 12/17/16 12/17/16 12/18/16 16:30 22:50 05:55 Activated Partial 40.1 SEC 47.8 SEC 39.5 SEC Thromboplast Time Prothrombin Time 12.1 SEC Prothromb Time International 1.1 RATIO Ratio White Blood Count 14.8 TH/MM3 Red Blood Count 4.32 MIL/MM3 Hemoglobin 12.5 GM/DL Hematocrit 36.7 % Mean Corpuscular Volume 85.0 FL Mean Corpuscular Hemoglobin 28.9 PG Mean Corpuscular Hemoglobin 34.1 % Concent Red Cell Distribution Width 13.3 % Platelet Count 216 TH/MM3 Mean Platelet Volume 9.5 FL Sodium Level 138 MEQ/L Potassium Level 4.3 MEQ/L Chloride Level 101 MEQ/L Carbon Dioxide Level 30.3 MEQ/L Anion Gap 7 MEQ/L Blood Urea Nitrogen 12 MG/DL Creatinine 0.92 MG/DL Estimat Glomerular Filtration 85 ML/MIN Rate Random Glucose 115 MG/DL Calcium Level 7.6 MG/DL Imaging Remarks Last Impressions Lower Extremity Ultrasound 12/16/16 0000 Signed Impressions: Service Date/Time: Friday, December 16, 2016 19:40 - CONCLUSION: No DVT. Candelario Brown MD Chest X-Ray 12/16/16 0000 Signed Impressions: Service Date/Time: Friday, December 16, 2016 14:46 - CONCLUSION: No acute disease. Nahun Workman MD CT Angiography 12/16/16 0000 Signed Impressions: Service Date/Time: Friday, December 16, 2016 16:28 - CONCLUSION: 1. Extensive bilateral pulmonary emboli. 2. Small right pleural effusion with infiltrate in the right lower lobe. Nahun Workman MD (Judy Nath) Physical Exam General General Appearance: Well Developed, Well Nourished, Anxious (Judy Nath) Eyes Eye Exam: Pupils Equal, Pupils Reactive, Sclera White (Judy Nath) Ears & Nose Ears & Nose Exam: Tympanic Membranes Normal, Nasal Mucosa [place], Septum Midline (Judy Nath) Throat Throat Exam: Oral Mucosa [place] & Moist (Portillo,Judy M. FAMILY MEMBER CARETAKER) Neck Neck Exam: Neck Supple, Trachea Midline (PortilloJudy M. FAMILY MEMBER CARETAKER) Pulmonary Resp Exam: Decreased Bases, Diminished Breath Sounds, Poor Inspiratory Effort Resp Remarks Positive for cough with inspiration (Portillo,Judy M. FAMILY MEMBER CARETAKER) Cardiology CV Exam: Regular CV Remarks Heart rate high 90s at rest (WesleyJudy M. FAMILY MEMBER CARETAKER) Gastrointestinal/Abdomen GI Exam: Soft, Non-Tender, Bowel Sounds Present GI Remarks No BM today 2 (WesleyJudy M. FAMILY MEMBER CARETAKER) Genitourinary Exam: Clear Urine (WesleyJudy M. FAMILY MEMBER CARETAKER) Musculoskeletal MS Exam: Good Strength MS Remarks Good strength except for Recent left knee surgery. Dressing clean dry and intact, (WesleyJudy M. FAMILY MEMBER CARETAKER) Integumentary Skin Exam: Clear, Warm, Dry, Intact (PortilloJudy M. FAMILY MEMBER CARETAKER) Extremeties Extremities Exam: Trace Edema Extremeties Remarks Left lower leg and ankle (PortilloJudy M. FAMILY MEMBER CARETAKER) Neurologic Neuro Exam: Alert, Awake, Oriented, Speech Clear, Moving All Extremities, Bankruptcy Paralegal Equal (WesleyJudy M. FAMILY MEMBER CARETAKER) VTE Prophylaxis VTE Prophylaxis Device: SCDs VTE Prophylaxis Meds: Heparin (WesleyJudy M. FAMILY MEMBER CARETAKER) PUD Prophylasis PUD Prophylaxis: Protonix (WesleyJudy M. FAMILY MEMBER CARETAKER) Assessment/Plan Assessment/Plan Assessment and Plan 1. Extensive bilateral PE status post TPA. Stat echo was done last night. Appreciate Dr. Kelly help. Now heart rate is in 1 teens. Continue IV heparin. Also have labs in the morning. IV hydration as well. Monitor H&H. 2. Recent knee surgery and quadriceps surgery. pain management 3. We will keep the patient on analgesics. 4. P.r.n. antiemetics. 5. Prognosis serious Balderas catheter to monitor I &O. Adequate UOP clear yeallow. Increase WBC count will monitor Slightly increased potassium will monitor Discussed with the patient and at bedside in detail. Further recommendation to follow as per patient progress. (Elicia Nathan M. FAMILY MEMBER CARETAKER) Assessment/Plan Patient seen and examined as above with RN at bedside [id number] time spent with patient Labs reviewed Appreciate consultants help Medications reviewed Discussed with patient Plan of care discussed with FAMILY MEMBER CARETAKER (Antwan Gupta MD) Judy Nath Dec 18, 2016 13:07 Antwan Gupta MD Dec 18, 2016 15:52
[2016-12-18] MEDS: HEPARIN-D5W INJ 250 ML IV SCH (14:10)
[2016-12-19] VITALS (14 sets, daily range): BP systolic 101–148; BP diastolic 67–89; PULSE 71–100; RESP 13–25; TEMP 98.2–99.6; O2SAT 95–100
[2016-12-19] MEDS: HEPARIN-D5W INJ 250 ML IV SCH ×2 (04:26→18:25)
[2016-12-19 04:45] LABS: HEMATOCRIT 36.2 % (39.0-51.0); MEAN CELL VOLUME 84.3 FL (80.0-100.0); MEAN CORPUSCULAR HGB CONC 34.4 % (32.0-36.0); PLATELET COUNT 211 TH/MM3 (150-450); RED BLOOD COUNT 4.29 MIL/MM3 (4.50-5.90); RED CELL DISTRIBUTION WIDTH 13.1 % (11.6-17.2); REVIEW FLAG FINAL; WHITE BLOOD COUNT 8.1 TH/MM3 (4.0-11.0)
[2016-12-19 07:07] LABS: APTT (PATIENT) 52.8 SEC (24.3-30.1)
[2016-12-19] MEDS: PANTOPRAZOLE SODIUM 40 MG VIAL IV PUSH SCH ×2 (08:22→19:00)
[2016-12-19] MEDS: SODIUM CHLORIDE 0.9% FLUSH 5 ML FLUSH FLUSH SCH ×2 (08:22→21:00)
[2016-12-19] MEDS: ACETAMINOPHEN/HYDROcodone 325 MG/5 MG TAB PO PRN ×3 (08:23→22:00)
--- NOTE | 2016-12-19 08:58 | HHI.CCPN ---
Subjective Remarks/Hospital Course 56-year-old male who has no significant PMH. He underwent L quadriceps tendon repair 11/28/[address] Posey. He states that 2 days ago he developed some pain in his right lower chest , pleuritic. Initial pain lasted few minutes and then got better, much worse today. Denies shortness of breath. He presented to [facility] where workup revealed a d-dimer 10. He underwent CTPA that demonstrated bilateral pulmonary emboli in distal bilateral main pulmonary arteries. He was initially normotensive with BP 110/78 with heart rate 110 to 120s. On 2 L NC. He was [facility]. His blood pressure did drop to 86/60 and he was bolused 1 L normal saline. Blood pressure then improved to 110s over 80s but heart rate remains in 130s. Dr. Gupta transferred patient to [facility] and called me for critical care medicine consult. While patient was en route, I called Dr. Posey with orthopaedics to discuss possibility of thrombolysis. Patients surgery is >14 days out and furthermore Dr. Posey states that he had very uncomplicated surgery with <100 mL of blood loss and thus TPA would seem a reasonable option. Called Dr. Cortez for stat Echo. 12/18: Due to evidence of RV strain and hypotension on arrival coupled with submassive clot burden, the patient received continuing heparin and 50 mg tPA yesterday without problems. He is normotensive and JVD has subsided. Continue heparin drip and convert to oral anticoagulation. 12/19: Breathing comfortably. Neck veins flat, suspect thrombi completely resolved. Convert to oral anticoagulation any time. Objective Vital Signs Date Time Temp Pulse Resp B/P Pulse Ox O2 Delivery O2 Flow Rate FiO2 12/19/16 08:52 99 21 12/19/16 06:00 71 12/19/16 04:00 98.2 18 101/67 12/18/16 20:30 Nasal Cannula 2.00 Intake and Output 12/18/16 12/18/16 12/19/16 08:00 16:00 00:00 Intake Total 444 ml 853 ml 728 ml Output Total 450 ml 625 ml 600 ml Balance -6 ml 228 ml 128 ml Result Diagram: 12/19/16 0407 12/18/16 0555 Objective Remarks blood pressure 128/72 pulse 82 respirations 14 96 % GENERAL: Well-nourished, well-developed patient. SKIN: Warm, dry. HEAD: Atraumatic. Normocephalic. . NECK: Trachea midline. Airway widely patent. CARDIOVASCULAR: NL S1S2, regular. No murmurs, rubs. No JVD RESPIRATORY: Clear to auscultation. Breath sounds equal bilaterally. No accessory muscle use. GASTROINTESTINAL: Abdomen soft, non-tender, nondistended. Bowel sounds active. MUSCULOSKELETAL: Extremities without clubbing, cyanosis, or edema. Left lower extremity in velcro splint. Strong distal PT pulses both feet. NEUROLOGICAL: Awake and alert. No obvious cranial nerve deficits. Motor grossly within normal limits. Five out of 5 muscle strength in the arms and legs. Normal speech. A/P Assessment and Plan NEURO: Lortab as needed for pain. Morphine as needed for breakthrough pain. RESP/CV: Acute bilateral submassive pulmonary emboli He has significant clot burden and had an isolated episode of blood pressure 86 over 60s. He is tachycardic in the 130s. Obtained a stat 2-D echo. Discussed with Dr. Cortez. There is a positive Cook sign and evidence of moderate RV strain. Patient meets criteria for fibrinogen lysis for submassive PE with RV strain. Discussed risk benefits in detail including TPA affording benefit of improved dyspnea, earlier resolution of RV dysfunction, improved pulmonary artery pressures, decreased risk of recurrent PE, earlier discharge. Overall will facilitate return to activity (improved functional outcomes) with probable decreased risk of RV failure and chronic pulmonary HTN. With that comes increased risk of bleeding, including risk of intracerebral hemorrhage ~1-2%. Will be using TPA regimen consisting of 10 mg IV bolus followed by 40 mg IV infusion over 2 hours which appears to minimize this risk of bleeding. -Continue heparin. Convert to oral agent anytime. GI: Heart healthy diet. FEN/RENAL: Place landon prior to TPA. ID: Monitor for e/o infection. HEME: Provoked PE secondary to recent LE surgery. Would recommend anticoagulation minimum 6 months. Will continue heparin drip. TPA 10 mg IV followed by 40 mg IV over 2 hours -> done, well tolerated. ENDO: Euglycemic PROPH: Heparin drip. Protonix for stress ulcer prophylaxis Discussed with Dr. Posey (ortho), Discussed with Dr. Cortez (cardiology) Overall impression: Was critically ill man with submassive pulmonary embolism treated with heparin and tPA. Improved hemodynamics. Chest discomfort minimal.. Potential for rapid decline small, response to lytics has been good. Mobilize now. Glenroy Erickson MD Dec 19, 2016 08:57
--- NOTE | 2016-12-19 15:21 | HHI.PR ---
Subjective Remarks Patient has shortness of breath Right sided chest pain is almost gone More energy No nausea vomiting No Abdominal pain No other complaint Review of systems a 10 point system otherwise unremarkable Objective Objective Results - Vital Signs Date Time Temp Pulse Resp B/P Pulse Ox O2 Delivery O2 Flow Rate FiO2 12/19/16 10:00 88 12/19/16 10:00 14 12/19/16 08:52 99 21 12/19/16 08:00 98.5 78 13 138/89 100 12/19/16 08:00 100 12/19/16 06:00 71 12/19/16 04:00 98.2 71 18 101/67 100 12/19/16 04:00 71 12/19/16 02:00 74 12/19/16 00:00 84 12/19/16 00:00 99.6 84 20 121/74 97 12/18/16 22:00 92 12/18/16 20:30 100 Nasal Cannula 2.00 12/18/16 20:00 94 12/18/16 20:00 98.6 94 22 143/81 100 12/18/16 19:00 97 Nasal Cannula 2.00 12/18/16 18:00 96 12/18/16 16:00 98.2 84 19 129/76 98 12/18/16 16:00 85 I/O 12/18/16 12/18/16 12/18/16 12/19/16 12/19/16 12/19/16 07:00 15:00 23:00 07:00 15:00 23:00 Intake Total 444 ml 853 ml 728 ml 481 ml Output Total 450 ml 625 ml 600 ml 575 ml Balance -6 ml 228 ml 128 ml -94 ml Intake Oral 120 ml 480 ml 480 ml 240 ml IV Total 324 ml 373 ml 248 ml 241 ml Output Urine Total 450 ml 625 ml 600 ml 575 ml # Bowel Movements 0 0 0 Result Diagram: 12/19/16 0407 12/18/16 0555 Other Results Laboratory Tests Test 12/19/16 12/19/16 12/19/16 04:07 06:45 12:58 White Blood Count 8.1 Red Blood Count 4.29 Hemoglobin 12.4 Hematocrit 36.2 Mean Corpuscular Volume 84.3 Mean Corpuscular Hemoglobin 29.0 Mean Corpuscular Hemoglobin 34.4 Concent Red Cell Distribution Width 13.1 Platelet Count 211 Mean Platelet Volume 9.5 Activated Partial 52.8 36.0 Thromboplast Time Physical Exam Physical Exam GENERAL: The patient is alert and oriented x3, well-built, well-nourished Sitting on a recliner, without any pericardial respiratory distress VITAL SIGNS: Reviewed HEENT: Head atraumatic normocephalic. Eyes - negative conjunctival icterus, mouth unremarkable. No increased JVD. Central trachea. CHEST: Some decreased air entry bibasilarly otherwise unremarkable. No wheeze. No rhonchi, rales noted. CARDIOVASCULAR: S1, s2 audible. Sinus tachycardia. GI: Abdomen soft and no organomegaly. Positive bowel sounds. MUSCULOSKELETAL: Extremities no cyanosis noted. There is a positive soft cast on the left leg. It is covering the knee as well as half of the thigh and most of his leg on the left side. SKIN: Warm and moist. PSYCHIATRIC: Appropriate mood QUANTITATIVE DEVELOPER: Alert and oriented. Normal facial features. Normal speech. Moving bilateral upper extremity and toes. A/P Assessment and Plan 1. Extensive bilateral PE status post TPA. Continue IV heparin. Also have labs in the morning. Labs reviewed. Within normal limits WBC count. Stable H& H 2. Recent knee surgery and quadriceps surgery. Keep on pain medications. 3. We will keep the patient on analgesics. 4. P.r.n. antiemetics. 5. Appreciate fountain waitress/waiter help Transfer to floor as patient is overall a stable Switch to oral anticoagulation tonight Discussed with the patient and at bedside in detail. Further recommendation to follow as per patient progress. Antwan Gupta MD Dec 19, 2016 15:21
--- NOTE | 2016-12-19 15:47 | EC ---
Study Study Date:12/17/2016 STUDY CONCLUSIONS SUMMARY - Left ventricle: The cavity size was normal. Wall thickness was increased in a pattern of mild LVH. Systolic function was vigorous. The estimated ejection fraction was in the range of 65% to 70%. Although no diagnostic regional wall motion abnormality was identified, this possibility cannot be completely excluded on the basis of this study. - Mitral valve: Mild regurgitation. - Right ventricle: The cavity size was mildly dilated. Systolic function was moderately reduced. There appears to be akinesis of the free wall with hyperdynamic movement of the apex, concerning for Cook's sign. - Tricuspid valve: Moderate regurgitation. - Pulmonary arteries: PA peak pressure: 50mm Hg (S). Recommendations: Discussed with Dr. Kelly about right ventricular strain, possible Cook's sign with extensive PE by CTA If LV function is below 40, please consider prescribing an ACEI or ARB or document rationale for non-use. PROCEDURE DATA STUDY STATUS: Elective. Procedure: Transthoracic echocardiography. Image quality was good. Scanning was performed from the parasternal, apical, and subcostal acoustic windows. Study completion: The patient tolerated the procedure well. Transthoracic echocardiography. M-mode, complete 2D, complete spectral Doppler, and color Doppler. Height: Height: 71in. Weight: Weight: 212.6lb. Body mass index: BMI: 29.7kg/m^2. Body surface area: BSA: 2.17m^2. Patient status: Inpatient. CARDIAC ANATOMY LEFT VENTRICLE: The cavity size was normal. Wall thickness was increased in a pattern of mild LVH. Systolic function was vigorous. The estimated ejection fraction was in the range of 65% to 70%. Although no diagnostic regional wall motion abnormality was identified, this possibility cannot be completely excluded on the basis of this study. AORTIC VALVE: The valve appears to be grossly normal. Doppler: There was no stenosis. No significant regurgitation. Valve area: 2.58cm^2 (Vmax). Indexed valve area: 1.19cm^2/m^2 (Vmax). Peak gradient: 13mm Hg (S). MITRAL VALVE: The valve appears to be grossly normal. Doppler: There was no evidence for stenosis. Mild regurgitation. LEFT ATRIUM: The atrium was normal in size. RIGHT VENTRICLE: The cavity size was mildly dilated. Systolic function was moderately reduced. There appears to be akinesis of the free wall with hyperdynamic movement of the apex, concerning for Cook's sign. PULMONIC VALVE: Not well visualized. Doppler: There was no evidence for stenosis. No significant regurgitation. TRICUSPID VALVE: The valve appears to be grossly normal. Doppler: There was no evidence for stenosis. Moderate regurgitation. PERICARDIUM: There was no pericardial effusion. Patient weight: 212.6lb _Ejection fraction:_ 65-75% _Fractional shortening:_ 32% up to 5Kg 5-11.5Kg 11.6-22.9Kg 23-45Kg 45-57Kg Aortic Root 7-13 <17 13-22 17-27 17-27 LA diam 6-13 <23 24-38 33-47 37-40 RVID 10-17 7-15 7-15 7-18 8-17 LVIDd 12-22 <32 24-38 33-47 37-40 LVPW 2-4 3-6 5-7 6-8 7-8 IVS 2-4 3-6 5-7 6-8 7-8 BASIC MEASUREMENTS ADULT NORMAL Left ventricle LV internal dimension, ED, chordal *42.4 mm 43-52 level, PLAX LV internal dimension, ES, chordal 30.6 mm 23-38 level, PLAX Fractional shortening, chordal level, *28 % >29 PLAX LV posterior wall thickness, ED 8.92 mm IVS/LVPW ratio, ED 0.9 <1.3 Ventricular septum Septal thickness, ED 8.04 mm Aortic valve Leaflet separation 22 mm 15-26 BASIC MEASUREMENTS ADULT NORMAL Aortic valve Leaflet separation 22 mm 15-26 Aorta Root diameter, ED 32 mm 20-37 Left atrium Anterior-posterior dimension, ES 35 mm 19-40 Anterior-posterior dimension index, ES 1.61 cm/m^2 <2.2 LA/aortic root ratio 1.09 DOPPLER MEASUREMENTS ADULT NORMAL Main pulmonary artery Pressure, S *50 mm Hg =30 Aortic valve Peak velocity, S 178 cm/s Peak gradient, S 13 mm Hg Valve area, Vmax 2.58 cm^2 Valve area index, Vmax 1.19 cm^2/m^2 Mitral valve Maximal regurgitant velocity 166 cm/s Tricuspid valve Regurgitant peak velocity 316 cm/s Peak RV-RA gradient, S 40 mm Hg Maximal regurgitant velocity 316 cm/s Systemic veins Estimated CVP 10 mm Hg Right ventricle RV pressure, S *50 mm Hg <30 LEGEND: Mean values are shown as u=mean value. Asterisk (*) cordoba values outside specified normal range. Prepared and signed by Jerome Cortez [id number]
[2016-12-19 19:32] LABS: APTT (PATIENT) 37.3 SEC (24.3-30.1)
[2016-12-19] MEDS: RIVAROXABAN 15 MG TAB PO SCH (22:00)
[2016-12-20] VITALS (12 sets, daily range): BP systolic 123–155; BP diastolic 59–83; PULSE 72–105; RESP 14–22; TEMP 98–99; O2SAT 94–100
[2016-12-20] MEDS: PANTOPRAZOLE SODIUM 40 MG VIAL IV PUSH SCH ×2 (06:16→18:43)
[2016-12-20 06:53] LABS: HEMATOCRIT 38.5 % (39.0-51.0); MEAN CELL VOLUME 85.2 FL (80.0-100.0); MEAN CORPUSCULAR HEMOGLOBIN 28.2 PG (27.0-34.0); MEAN CORPUSCULAR HGB CONC 33.1 % (32.0-36.0); PLATELET COUNT 265 TH/MM3 (150-450); RED BLOOD COUNT 4.51 MIL/MM3 (4.50-5.90); RED CELL DISTRIBUTION WIDTH 12.9 % (11.6-17.2); REVIEW FLAG FINAL; WHITE BLOOD COUNT 7.2 TH/MM3 (4.0-11.0)
[2016-12-20] MEDS: RIVAROXABAN 15 MG TAB PO SCH ×2 (08:25→21:16)
--- NOTE | 2016-12-20 09:40 | HHI.PR ---
Subjective Interval History awake alert and oriented IN ICU on RA Heart rate in 90s complaining of swollen LLE minimal chest pain no other complaints Review of Systems Constitutional Constitutional: Fatigue, Weakness Pulmonary Respiratory: Coughing, Shortness of Breath Cardiology CV: Chest Pain Musculoskeletal MS: Weakness, Swelling (left lower leg, 1+ ankle edema) Psychiatric Psychiatric: Normal Mood, Anxiety Vitals/Results Intake & Output 12/19/16 12/19/16 12/20/16 15:00 23:00 07:00 Intake Total 1160 ml 702 ml 448 ml Output Total 600 ml 700 ml 650 ml Balance 560 ml 2 ml -202 ml Intake Oral 840 ml 360 ml 420 ml IV Total 320 ml 342 ml 28 ml Output Urine Total 600 ml 700 ml 650 ml # Bowel Movements 0 0 0 Vital Signs Vital Signs Date Time Temp Pulse Resp B/P Pulse Ox O2 Delivery O2 Flow Rate FiO2 12/20/16 06:00 80 12/20/16 04:00 72 12/20/16 04:00 98.3 72 16 126/60 95 12/20/16 02:00 74 12/20/16 01:18 94 21 12/20/16 00:00 98.5 78 22 123/59 95 12/20/16 00:00 78 12/19/16 22:00 86 12/19/16 20:00 98.3 80 25 134/76 96 12/19/16 20:00 80 12/19/16 20:00 96 Room Air 12/19/16 18:00 88 12/19/16 16:00 88 12/19/16 16:00 98.9 84 21 140/79 95 12/19/16 14:00 84 12/19/16 13:00 81 12/19/16 12:00 82 12/19/16 12:00 98.6 82 23 148/88 100 12/19/16 10:00 88 12/19/16 10:00 88 12/19/16 10:00 14 CBC/BMP: 12/20/16 0638 12/18/16 0555 Lab Results Laboratory Tests Test 12/19/16 12/19/16 12/20/16 12:58 19:00 06:38 Activated Partial 36.0 SEC 37.3 SEC Thromboplast Time White Blood Count 7.2 TH/MM3 Red Blood Count 4.51 MIL/MM3 Hemoglobin 12.7 GM/DL Hematocrit 38.5 % Mean Corpuscular Volume 85.2 FL Mean Corpuscular Hemoglobin 28.2 PG Mean Corpuscular Hemoglobin 33.1 % Concent Red Cell Distribution Width 12.9 % Platelet Count 265 TH/MM3 Mean Platelet Volume 8.5 FL Physical Exam General General Appearance: Well Developed, Well Nourished, Anxious Eyes Eye Exam: Pupils Equal, Pupils Reactive, Sclera White Ears & Nose Ears & Nose Exam: Tympanic Membranes Normal, Nasal Mucosa [place], Septum Midline Throat Throat Exam: Oral Mucosa [place] & Moist Neck Neck Exam: Neck Supple, Trachea Midline Pulmonary Resp Exam: Decreased Bases, Diminished Breath Sounds, Poor Inspiratory Effort Cardiology CV Exam: Regular Gastrointestinal/Abdomen GI Exam: Soft, Non-Tender, Bowel Sounds Present Genitourinary Exam: Clear Urine Musculoskeletal MS Exam: Good Strength Integumentary Skin Exam: Clear, Warm, Dry, Intact Extremeties Extremities Exam: Trace Edema Neurologic Neuro Exam: Alert, Awake, Oriented, Speech Clear, Moving All Extremities, Outreach Liaison Equal VTE Prophylaxis VTE Prophylaxis Device: SCDs VTE Prophylaxis Meds: Heparin PUD Prophylasis PUD Prophylaxis: Protonix Assessment/Plan Assessment/Plan A/P Assessment and Plan 1. Extensive bilateral PE status post TPA. Off IV heparin. Xarelto initiated last night 15 mg po bid until January 09,then switch to 20 mg po daily. H & H stable. 2. Recent knee surgery and quadriceps surgery. Keep on pain medications. PT Eval Left knee in brace 3. We will keep the patient on analgesics. 4. P.r.n. antiemetics. 5. Appreciate pi/senior research associate help 6. Constipation: Bowel regimen Transfer to floor as patient is overall a stable Discussed with the patient discussed with nursing staff Tosin Rene MD Dec 20, 2016 09:40
[2016-12-20] MEDS: ACETAMINOPHEN/HYDROcodone 325 MG/5 MG TAB PO PRN ×2 (09:44→21:17)
[2016-12-20] MEDS: SODIUM CHLORIDE 0.9% FLUSH 5 ML FLUSH FLUSH SCH ×2 (09:44→21:17)
--- NOTE | 2016-12-20 11:33 | HHI.CCPN ---
Subjective Remarks/Hospital Course 56-year-old male who has no significant PMH. He underwent L quadriceps tendon repair 11/28/[address] Posey. He states that 2 days ago he developed some pain in his right lower chest , pleuritic. Initial pain lasted few minutes and then got better, much worse today. Denies shortness of breath. He presented to [facility] [place] where workup revealed a d-dimer 10. He underwent CTPA that demonstrated bilateral pulmonary emboli in distal bilateral main pulmonary arteries. He was initially normotensive with BP 110/78 with heart rate 110 to 120s. On 2 L NC. He was admitted to [facility]. His blood pressure did drop to 86/60 and he was bolused 1 L normal saline. Blood pressure then improved to 110s over 80s but heart rate remains in 130s. Dr. Gupta transferred patient to [facility] and called me for critical care medicine consult. While patient was en route, I called Dr. Posey with orthopaedics to discuss possibility of thrombolysis. Patients surgery is >14 days out and furthermore Dr. Posey states that he had very uncomplicated surgery with <100 mL of blood loss and thus TPA would seem a reasonable option. Called Dr. Cortez for stat Echo. 12/18: Due to evidence of RV strain and hypotension on arrival coupled with submassive clot burden, the patient received continuing heparin and 50 mg tPA yesterday without problems. He is normotensive and JVD has subsided. Continue heparin drip and convert to oral anticoagulation. 12/19: Breathing comfortably. Neck veins flat, suspect thrombi completely resolved. Convert to oral anticoagulation any time. 12/20: Warm, well perfused. Breathing comfortably. Objective Vital Signs Date Time Temp Pulse Resp B/P Pulse Ox O2 Delivery O2 Flow Rate FiO2 12/20/16 08:00 99.0 105 20 129/79 12/20/16 04:00 95 12/20/16 01:18 21 12/19/16 20:00 Room Air 12/18/16 20:30 2.00 Intake and Output 12/19/16 12/19/16 12/20/16 08:00 16:00 00:00 Intake Total 481 ml 1160 ml 702 ml Output Total 575 ml 600 ml 700 ml Balance -94 ml 560 ml 2 ml Result Diagram: 12/20/16 0638 12/18/16 0555 Objective Remarks GENERAL: Well-nourished, well-developed patient. Alert, calm. CARDIOVASCULAR: NL S1S2, regular. No murmurs, rubs. No JVD RESPIRATORY: Clear to auscultation.Comfortable pattern. GASTROINTESTINAL: Abdomen soft, non-tender, nondistended. Bowel sounds active. MUSCULOSKELETAL: Left lower extremity in velcro splint. Strong distal PT pulses both feet. Well perfused. NEUROLOGICAL: Awake and alert.O X 3, conversant. A/P Assessment and Plan NEURO: Lortab as needed for pain. Morphine as needed for breakthrough pain. RESP/CV: Acute bilateral submassive pulmonary emboli He has significant clot burden and had an isolated episode of blood pressure 86 over 60s. He is tachycardic in the 130s. Obtained a stat 2-D echo. Discussed with Dr. Cortez. There is a positive Cook sign and evidence of moderate RV strain. Patient meets criteria for fibrinogen lysis for submassive PE with RV strain. Discussed risk benefits in detail including TPA affording benefit of improved dyspnea, earlier resolution of RV dysfunction, improved pulmonary artery pressures, decreased risk of recurrent PE, earlier discharge. Overall will facilitate return to activity (improved functional outcomes) with probable decreased risk of RV failure and chronic pulmonary HTN. With that comes increased risk of bleeding, including risk of intracerebral hemorrhage ~1-2%. Will be using TPA regimen consisting of 10 mg IV bolus followed by 40 mg IV infusion over 2 hours which appears to minimize this risk of bleeding. -Continue heparin. Converted to oral agent. GI: Heart healthy diet. FEN/RENAL: ID: Monitor for e/o infection. HEME: Provoked PE secondary to recent LE surgery. Would recommend anticoagulation minimum 6 months. Will continue heparin drip. TPA 10 mg IV followed by 40 mg IV over 2 hours -> done, well tolerated. ENDO: Euglycemic PROPH: Heparin drip. Protonix for stress ulcer prophylaxis Discussed with Dr. Posey (ortho), Discussed with Dr. Cortez (cardiology) Overall impression: Was critically ill man with submassive pulmonary embolism treated with heparin and tPA. Improved hemodynamics. Chest discomfort minimal.. Potential for decline small, response to lytics has been good. Mobilize now. Patient understands the need to take oral anticoagulant for at least 6 months. Glenroy Erickson MD Dec 20, 2016 11:32
[2016-12-21] VITALS: BP 139/70; PULSE 80; RESP 18; TEMP 99; O2SAT 95
[2016-12-21 04:00] VITALS: BP 135/79; PULSE 75; RESP 18; TEMP 98.2; O2SAT 96
[2016-12-21] MEDS: PANTOPRAZOLE SODIUM 40 MG VIAL IV PUSH SCH (06:06)
[2016-12-21 08:00] VITALS: BP 128/70; PULSE 82; RESP 16; TEMP 98.4; O2SAT 95
[2016-12-21 08:10] VITALS: PULSE 79
[2016-12-21 09:29] LABS: AUTOMATED NEUTROPHIL # 4.6 TH/MM3 (1.8-7.7); BASOPHIL # 0.1 TH/MM3 (0-0.2); BASOPHIL % 0.9 % (0.0-2.0); EOSINOPHIL # 0.2 TH/MM3 (0-0.4); EOSINOPHIL % 3.4 % (0.0-4.0); HEMATOCRIT 38.8 % (39.0-51.0); HEMO FLAGS DIFF FINAL; LYMPH % 20.9 % (9.0-44.0); LYMPHOCYTE # 1.5 TH/MM3 (1.0-4.8); MEAN CELL VOLUME 85.3 FL (80.0-100.0); MEAN CORPUSCULAR HEMOGLOBIN 28.4 PG (27.0-34.0); MEAN CORPUSCULAR HGB CONC 33.3 % (32.0-36.0); MONO % 10.2 % (0.0-8.0); NEUT % 64.6 % (16.0-70.0); PLATELET COUNT 283 TH/MM3 (150-450); RED BLOOD COUNT 4.54 MIL/MM3 (4.50-5.90); RED CELL DISTRIBUTION WIDTH 13.1 % (11.6-17.2); WHITE BLOOD COUNT 7.1 TH/MM3 (4.0-11.0)
--- NOTE | 2016-12-21 09:49 | HHI.PR ---
Subjective Subjective Remarks slight right sided chest discomfort with deep breathing and cough no sob left foot/ankle swelling, improves with elevation no fever no n/v anxious to go home states he has OP PT arranged Review of Systems Constitutional Constitutional Remarks 12 point ROS completed, neg. except as noted above Pulmonary Respiratory: Coughing, Shortness of Breath Cardiology CV: Chest Pain Musculoskeletal MS: Weakness, Swelling (left lower leg, 1+ ankle edema) Psychiatric Psychiatric: Normal Mood, Anxiety Vitals/Results Intake & Output 12/20/16 12/20/16 12/21/16 15:00 23:00 07:00 Intake Total 480 ml 240 ml 100 ml Output Total 300 ml Balance 480 ml 240 ml -200 ml Intake Oral 480 ml 240 ml 100 ml Output Urine Total 300 ml # Voids 2 # Bowel Movements 1 0 0 Vital Signs Vital Signs Date Time Temp Pulse Resp B/P Pulse Ox O2 Delivery O2 Flow Rate FiO2 12/21/16 08:00 98.4 82 16 128/70 95 12/21/16 04:00 98.2 75 18 135/79 96 12/21/16 00:00 99.0 80 18 139/70 95 12/20/16 20:00 98.6 87 18 155/79 96 12/20/16 18:00 74 12/20/16 16:00 93 12/20/16 16:00 98.0 82 14 142/77 98 12/20/16 15:10 96 Room Air 12/20/16 14:00 81 12/20/16 12:30 80 12/20/16 12:00 98.0 92 21 135/83 100 12/20/16 11:00 22 CBC/BMP: 12/21/16 0815 12/18/16 0555 Lab Results Laboratory Tests Test 12/21/16 08:15 White Blood Count 7.1 TH/MM3 Red Blood Count 4.54 MIL/MM3 Hemoglobin 12.9 GM/DL Hematocrit 38.8 % Mean Corpuscular Volume 85.3 FL Mean Corpuscular Hemoglobin 28.4 PG Mean Corpuscular Hemoglobin 33.3 % Concent Red Cell Distribution Width 13.1 % Platelet Count 283 TH/MM3 Mean Platelet Volume 8.4 FL Neutrophils (%) (Auto) 64.6 % Lymphocytes (%) (Auto) 20.9 % Monocytes (%) (Auto) 10.2 % Eosinophils (%) (Auto) 3.4 % Basophils (%) (Auto) 0.9 % Neutrophils # (Auto) 4.6 TH/MM3 Lymphocytes # (Auto) 1.5 TH/MM3 Monocytes # (Auto) 0.7 TH/MM3 Eosinophils # (Auto) 0.2 TH/MM3 Basophils # (Auto) 0.1 TH/MM3 CBC Comment DIFF FINAL Differential Comment Physical Exam General General Appearance: Well Developed, Well Nourished, No Acute Distress, Comfortable Eyes Eye Exam: Pupils Equal, Pupils Reactive, Sclera White Ears & Nose Ears & Nose Exam: Tympanic Membranes Normal, Nasal Mucosa [place], Septum Midline Throat Throat Exam: Oral Mucosa [place] & Moist Neck Neck Exam: Neck Supple, Trachea Midline Pulmonary Resp Exam: Decreased Bases, Diminished Breath Sounds, Poor Inspiratory Effort Cardiology CV Exam: Regular Gastrointestinal/Abdomen GI Exam: Soft, Non-Tender, Bowel Sounds Present, Positive Bowel Movement, Non- Distended Musculoskeletal MS Exam: Good Strength MS Remarks brake to left leg Integumentary Skin Exam: Clear, Warm, Dry, Intact Extremeties Extremities Exam: Pedal Pulses Palpable, Moderate Edema Extremeties Remarks Left foot/ankle Neurologic Neuro Exam: Alert, Awake, Oriented, Speech Clear, Moving All Extremities, 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 H & H stable. PT per ortho orders pain management Bowel regimen Has PT arranged as OP elevate left leg TEDS both legs Possible discharge today D/W RN D/W Dr. Rene D/W pt This patient was seen by myself and Dr. Rene, this note is written on his behalf. Problem Qualifiers (1) Acute pulmonary embolus: Qualified Code: I26.99 - Other acute pulmonary embolism without acute cor pulmonale (2) Hypotension: Qualified Code: I95.9 - Hypotension, unspecified hypotension type Tere Sapp Dec 21, 2016 09:49
[2016-12-21] MEDS: RIVAROXABAN 15 MG TAB PO SCH (09:51)
[2016-12-21] MEDS: ACETAMINOPHEN/HYDROcodone 325 MG/5 MG TAB PO PRN (09:53)
[2016-12-21] MEDS: SODIUM CHLORIDE 0.9% FLUSH 5 ML FLUSH FLUSH SCH (09:54)
[2016-12-21] MEDS ORDERED: XARE20TA PO (09:55)
[2016-12-21] MEDS ORDERED: XARE15TA PO (09:55)
--- NOTE | 2016-12-21 09:55 | HHI.DCPOC ---
Discharge Care Plan Diagnosis: (1) Acute pulmonary embolus Your Health Problems Are: Chest Pain Shortness of Breath Goals to Promote Your Health * To prevent worsening of your condition and complications * To maintain your health at the optimal level Directions to Meet Your Goals Take your medications as prescribed Follow your dietary instruction Follow activity as directed Keep your appointments as scheduled Take your immunizations and boosters as scheduled If your symptoms worsen call your PCP, if no PCP go to Urgent Care Center or Emergency Room Smoking is Dangerous to Your Health. Avoid second hand smoke Call the 24-hour hour crisis hotline for domestic abuse at Tere Sapp Dec 21, 2016 09:55
[2016-12-21 10:03] VITALS: O2SAT 99
[2016-12-21 10:03] LABS: BICARBONATE 28.7 MEQ/L (21.0-32.0); POTASSIUM 4.3 MEQ/L (3.5-5.1)
--- NOTE | 2016-12-21 14:42 | HHI.DS ---
Discharge Summary Admission Date Dec 16, 2016 at 17:00 Discharge Date: Dec 21, 2016 Admitting Diagnosis bilateral PE (1) Acute pulmonary embolus (2) Hypotension (3) S/P left quadricep surgery CBC/BMP: 12/21/16 0815 12/21/16 0815 Significant Findings Laboratory Tests Test 12/19/16 12/19/16 12/19/16 12/19/16 04:07 06:45 12:58 19:00 Red Blood Count 4.29 MIL/MM3 (4.50-5.90) Hemoglobin 12.4 GM/DL (13.0-17.0) Hematocrit 36.2 % (39.0-51.0) Activated Partial 52.8 SEC 36.0 SEC 37.3 SEC Thromboplast Time (24.3-30.1) (24.3-30.1) (24.3-30.1) Test 12/20/16 12/21/16 06:38 08:15 Hemoglobin 12.7 GM/DL 12.9 GM/DL (13.0-17.0) (13.0-17.0) Hematocrit 38.5 % 38.8 % (39.0-51.0) (39.0-51.0) Monocytes (%) (Auto) 10.2 % (0.0-8.0) Imaging Last Impressions Lower Extremity Ultrasound 12/16/16 0000 Signed Impressions: Service Date/Time: Friday, December 16, 2016 19:40 - CONCLUSION: No DVT. Candelario Brown MD Chest X-Ray 12/16/16 0000 Signed Impressions: Service Date/Time: Friday, December 16, 2016 14:46 - CONCLUSION: No acute disease. Nahun Workman MD CT Angiography 12/16/16 0000 Signed Impressions: Service Date/Time: Friday, December 16, 2016 16:28 - CONCLUSION: 1. Extensive bilateral pulmonary emboli. 2. Small right pleural effusion with infiltrate in the right lower lobe. Nahun Workman MD Hospital Course The patient is a very pleasant 56-year male without any significant past medical history. As the patient, he had the knee surgery done in the first week of October. Two days before admission, he started having right- sided chest pain. It was mild and then became moderate in intensity and some shortness of breath. He came to the ER. In the ER, was evaluated by the ER physician. The patient was found to have bilateral PE. As per patient, deep breath caused him more pain. There was no nausea or vomiting. There was no dizziness. There was no abdominal pain. There was no back pain. He had no dizziness. No fever or chills. Going through the records, the patient had a CT scan and after receiving IV contrast his blood pressure went down to 86/60. Bolus of normal saline was given and after that, blood pressure was okay. LABORATORY DATA ABG - pH of 7.4, CO2 of 34, O2 of 82 on three liters. Oxygen saturation of 94%. BMP within normal limit and it was 133. WBC , hemoglobin/hematocrit count within normal limits. PT is 11.2, INR one and APTT is 24.8, D-dimer 10.41. IMAGING STUDIES Lower extremity ultrasound was done which showed no DVT. Chest x-ray - No acute disease. CT angio was done which shows extensive bilateral PE. Small right pleural effusion with infiltrate in the right lower lobe. CARDIOLOGY STUDIES EKG was done, showed sinus tachycardiac rate of 136 beats per minute. Pt. was admitted for extensive bilateral PE with shortness of breath and right- sided pain worse on deep breathing. The patient also had a low blood pressure after given the IV contrast. Heart rate up to 130s. He was admitted to ICU and put on Heparin drip. Echo was ordered. TPA was considered due to burden of PE Rn Cardiac Rehab discussed with ortho surgeon, recommendation was ok to proceed with TPA 1/2 dose of TPA given, pt. tolerated well. Heparin was restarted after. Pt. was put on appropriate pain med for knee pain He was transferred from to [facility] hospital He was eventually transferred out of ICU Was transitioned to NOAC, started on Xarelto. Was transferred out of ICU Echo EF 65-70%, RV strain H & H stable. PT per ortho orders Bowel regimen ordered. Discharge planning initiated, has PT arranged as OP Instructed to elevate left leg, had swelling. TEDS ordered. Pt.'s symptoms, improved, minimal CP, no SOB hemodynamically stable. Pt. stable for discharge Pt Condition on Discharge: Stable Discharge Disposition: Discharge Home Discharge Instructions DIET: Follow Instructions for: Heart Healthy Diet Speech Therapy-Diet Recommends: Regular Activities you can perform: Non Weight Bearing Follow up Referrals: PCP Follow-up New Medications: Rivaroxaban (Xarelto) 20 Mg Tab 20 MG PO DAILY start January 09, 2017 Blood Clot Prevention #30 Ref 1 TAB Rivaroxaban (Xarelto) 15 Mg Tab 15 MG PO BID take until January 08 pulmonary emboli #38 Ref 0 TAB Continued Medications: Oxycodone-Acetaminophen (Oxycodone-Acetaminophen) 5-325 mg Tab 1 TAB PO Q4H PRN PAIN LESS THAN 5 ON SCALE #60 TAB Discontinued Medications: Aspirin (Aspir-81) 81 Mg Tabdr Tere Sapp Dec 21, 2016 14:42
== END 2016-12-21 18:18 | disposition home or self-care (01) | DRG 176 ==
LOC: PHED 13:52 → PHEDA 17:00 → N03B 22:18 → N04A 12-20 18:55
PROVIDERS: ADMIT Specialist; ATTEND Specialist
DX: I26.99 Other pulmonary embolism without acute cor pulmonale (principal); J90 Pleural effusion, not elsewhere classified; I95.9 Hypotension, unspecified; R00.0 Tachycardia, unspecified; I10 Essential (primary) hypertension; K59.00 Constipation, unspecified
CPT/HCPCS: 36600; 71010; 71275; 80048; 82805; 83036; 83880; 84484; 85025; 85027; 85379; 85610; 85730; 87641; 93005; 93306; 93970; C9113; J1644; J2270; J2405; J2997; J7030; Q9967

== ENCOUNTER 2017-01-15 12:05 | Emergency (ER) | payer BC ==
[~2017-01-15] VITALS: Ht 180.3 cm; Wt 90.0 kg
[~2017-01-15 12:05] MED LIST changes: -ASPI81TA81; +XARE15TA PO; +XARE20TA PO
[2017-01-15 12:12] VITALS: BP 159/88; PULSE 77; RESP 20; TEMP 97.8; O2SAT 98
[2017-01-15 12:34] VITALS: BP 185/87; PULSE 69; RESP 24; O2SAT 97
--- NOTE | 2017-01-15 12:34 | PD ---
HPI Chief Complaint: Pain: Acute or Chronic Time Seen by Provider: 12:32 Travel History International Travel<30 days: No Contact w/Intl Traveler<30days: No Traveled to known affect area: No History of Present Illness HPI 56-year-old male presents to the emergency department with complaint of right lateral rib cage pain for the last day to day and a half. He was discharged on 01/18 from intensive care after having a 5 day stay for bilateral PEs. He is on Cymbalta 20 mg once daily and has been taking as prescribed. He says the right side pain is aggravated with deep breathing, cough, laughing. The shooting pain and he rates it 7/10. She denies chest pain and reports "a little bit" of shortness of breath. Denies hemoptysis. Denies leg edema. Denies fever, chills, nausea, vomiting, abdominal pain. Has not followed up outpatient since being discharged. His primary care provider is Dr. Mitchell. No known allergies. Denies significant past medical history other than the PEs. PEs resulted after having left knee surgery on November 28. No other modifying factors or associated signs and symptoms. PFSH Past Medical History Hx Anticoagulant Therapy: Yes (xarelto) Asthma: No Autoimmune Disease: No Heart Rhythm Problems: No Cancer: No Cardiovascular Problems: Yes (dvt/pe) High Cholesterol: No Chest Pain: No Congestive Heart Failure: No COPD: No Diabetes: No Diminished Hearing: No Endocrine: No Genitourinary: No Hypertension: Yes Immune Disorder: No Musculoskeletal: No Neurologic: No Psychiatric: No Reproductive: No Respiratory: No Sleep Apnea: No Thyroid Disease: No Past Surgical History Abdominal Surgery: No Cardiac Surgery: No Ear Surgery: No Endocrine Surgery: No Eye Surgery: No Genitourinary Surgery: No Gynecologic Surgery: No Oral Surgery: No Thoracic Surgery: No Other Surgery: Yes (tumor removed from right knee as a child) Social History Alcohol Use: Yes (5 TIMES A WEEK SEVERAL BEERS) Tobacco Use: No (NEVER) Substance Use: No Allergies-Medications (Allergen,Severity, Reaction): Coded Allergies: No Known Allergies (Unverified , 01/15/17) Reported Meds & Prescriptions Reported Meds & Active Scripts Active Roller Walker (Misc. Devices) 1 Mis Mis 1 Ea .ROUTE NOW Oxycodone-Acetaminophen 5-325 mg Tab 1 Tab PO Q4H PRN Reported Flomax (Tamsulosin HCl) 0.4 Mg Cap 0.4 Mg PO DAILY Xarelto (Rivaroxaban) 20 Mg Tab 20 Mg PO DAILY Review of Systems Except as stated in HPI: all other systems reviewed are Neg Physical Exam Narrative GENERAL: Well-nourished, well-developed male patient, in no acute distress SKIN: Warm and dry. HEAD: Atraumatic. Normocephalic. EYES: Pupils equal and round. No scleral icterus. No injection or drainage. ENT: Mucosa pink and moist. NECK: Trachea midline. CHEST: Reproducible tenderness to right lateral rib cage area; no crepitance or deformity. No retractions or use of accessory muscles. CARDIOVASCULAR: Regular rate and rhythm. No murmur appreciated. RESPIRATORY: No accessory muscle use. Clear to auscultation. Breath sounds equal bilaterally. No retractions or tachypnea. GASTROINTESTINAL: Abdomen soft, non-tender, nondistended. Hepatic and splenic margins not palpable. Bowel sounds are active 4 quadrants. MUSCULOSKELETAL: No obvious deformities. No clubbing. No cyanosis. No edema. NEUROLOGICAL: Awake and alert. Oriented 3. No obvious cranial nerve deficits. Motor grossly within normal limits. Normal speech. Moves all extremities. 5/5 strength to all extremities. PSYCHIATRIC: Appropriate mood and affect; insight and judgment normal. Data Data Last Documented VS Vital Signs Date Time Temp Pulse Resp B/P Pulse Ox O2 Delivery O2 Flow Rate FiO2 01/15/17 13:15 75 24 133/82 95 Room Air 01/15/17 12:12 97.8 Orders Electrocardiogram (01/15/17 12:34) Chest, Single Ap (01/15/17 12:34) [facility] Medical Decision Making Medical Screen Exam Complete: Yes Emergency Medical Condition: Yes Medical Record Reviewed: Yes Differential Diagnosis Pulmonary embolism, costochondritis, chest wall pain Narrative Course 56-year-old male that was discharged on December 21, here from [place], with bilateral PEs. He is taking Xarelto 20 mg daily. He returns complaining of right lateral rib cage pain that started about 2 days ago. His vital signs are stable. He is in no acute distress without retractions or tachypnea. Oxygen saturation is 98% on room air. Heart rate is in the 70s. Right lateral rib cage pain is reproducible on physical exam and he reports increased pain to the area with deep breathing, cough, laughing. Patient placed on cardiopulmonary monitor. IV set obtained. I spoke with Dr. Brito, my attending physician, and he recommended chest x-ray and EKG. 1312: Chest x-ray concludes No acute disease. 1325: I discussed patient with Dr. Burciaga. The patient is not hypoxic and his heart rate is within normal limits. His chest x-ray is unremarkable. Vital signs are stable and the patient's oxygen saturations 98% on room air. He is in no acute distress and without retractions or tachypnea. Both Dr. Brito and I agree the patient is stable for outpatient discharge. I discussed this with the patient and he feels comfortable with discharge home. Instructed patient to continue medications as prescribed and to follow-up with wheel lacer and truer and primary care. Patient verbalizes understanding and agreement with treatment plan. Patient is medically cleared and stable for discharge. Discussed reasons to return to the emergency department. Instructed patient to follow up with primary care provider. Patient agrees with treatment plan. The patients vital signs are stable and the patient is stable for outpatient follow- up and treatment. Patient discharged home, stable and in no acute distress. Diagnosis Primary Impression: Chest wall pain Referrals: Primary Care Physician Facility Security Officer Patient Instructions: Chest Wall Pain (ED), General Instructions, Pulmonary Embolism (DC) Additional Instructions: Continue medications as prescribed Follow-up with primary care provider Follow up with pulmonology Return to the emergency department immediately with worsening of symptoms Med/Other Pt SpecificInfo: No Change to Meds, No Meds Exist/No RX given Disposition: 01 DISCHARGE HOME Condition: Stable Abigail Huggins Jan 15, 2017 12:34
[2017-01-15] MEDS ORDERED: TAMS5CAP PO (12:52)
[2017-01-15] MEDS ORDERED: XARE20TA PO (12:52)
--- NOTE | 2017-01-15 13:09 | RADRPT ---
EXAM DATE/TIME: 01/15/2017 12:48 [facility] COMPARISON: CHEST SINGLE AP, December 16, 2016, 14:46. INDICATIONS : Pain in right axillary region during recovery from pulmonary embolism. MEDICAL HISTORY : Pulmonary embolism. SURGICAL HISTORY : None. ENCOUNTER: Initial ACUITY: 2 weeks PAIN SCORE: 5/10 LOCATION: Right axillary. FINDINGS: A single view of the chest demonstrates the lungs to be symmetrically aerated without evidence of mas s, infiltrate or effusion. The cardiomediastinal contours are unremarkable. Osseous structures are intact. CONCLUSION: No acute disease. Bj Coelho MD on January 15, 2017 at 13:07 Board Certified Radiologist. This report was verified electronically.
[2017-01-15 13:15] VITALS: BP 133/82; PULSE 75; RESP 24; O2SAT 95
--- NOTE | 2017-01-16 15:04 | EKG ---
Date Performed: 01/15/2017 Time Performed: 12:57:03 PTAGE: 56 years EKG: Sinus rhythm NORMAL ECG PREVIOUS TRACING : 12/16/2016 20.11 Compared to the previous tracing, SINUS TACHYCARDIA NO LONG ER PRESENT DOCTOR: Favio Wills Interpretating Date/Time 01/16/2017 15:03:34
== END 2017-01-15 13:59 | disposition home or self-care (01) ==
LOC: NEPE 12:05
DX: R07.89 Other chest pain (principal); I10 Essential (primary) hypertension
CPT/HCPCS: 71010; 93005